=== PATIENT | female | born 1945 | race Caucasian/White ===

== ENCOUNTER → 2016-07-12 09:40 | Day surgery (SDC) | payer MEDICARE, OTHER ==
[2016-07-11 11:00] LABS: HEMATOCRIT 34.6 % (36.0-48.0); HEMOGLOBIN 11.6 g/dL (12-16); MCH 31.4 pg (26.0-34.0); MCHC 33.5 g/dL (31.0-37.0); MCV 93.8 fL (80.0-100.0); MEAN PLATELET VOLUME 8.9 fL (7.4-10.4); RBC 3.69 10x6/uL (4.00-5.40); RDW 13.8 % (11.5-14.5); WBC 7.8 10x3/uL (4.8-10.8)
[2016-07-11 11:06] LABS: ANION GAP 13.9 mmol/L (8-16); CALCIUM 9.7 mg/dL (8.5-10.1); CARBON DIOXIDE 27.5 mmol/L (21.0-32.0); CREATININE - SERUM 1.4 mg/dL (0.6-1.3); POTASSIUM - SERUM 3.4 mmol/L (3.5-5.1)
[~2016-07-12] VITALS: Ht 165.1 cm; Wt 72.1 kg
[~2016-07-12 09:40] MED LIST: ARAVA10 MG PO; BAYER CHEWABLE81 MG PO; CALTRATE 600 M600 M1 PO; CENTRUM COMPLE1 EACH PO; CLARITIN 10 MG10 MG PO; CRESTOR20 MG PO; CYCLOBENZAPRINE10 MG PO; CYMBALTA20 MG PO; LANTUS SOL100 UNIT/1 SC; LASIX20 MG PO; LISINOPRIL5 MG PO; LOPID600 MG PO; LOPRESSOR25 MG PO; NAPROSYN500 MG PO; NOVOLOG100 U/M1 SC; PERCOCET 10/3251 TA1 PO; PLAVIX75 MG PO; PRAVACHOL40 MG PO; PREDNISONE5 MG PO; TRIBENZOR 40-11 EACH PO; VICTOZA INJ; VICTOZA0.6 MG/0.1 SQ
[2016-07-12 10:02] VITALS: BP 124/56; Ht 165.1 cm; Wt 72.1 kg
--- NOTE | 2016-07-12 10:31 | NUR ---
1015 PATIENTS BLOOD SUGAR IS 343, CALLED DR. MCCAIN ABOUT BLOOD SUGAR AND NO NEW ORDERS NOTED. PATIENT STABLE NO PROBLEMS.
--- NOTE | 2016-07-12 15:00 | NUR ---
1445-ESCORTED VIA WHEELCHAIR TO PERSONAL CAR, LEFT WITH DRIVING.
--- NOTE | 2016-07-27 11:39 | OP ---
PATIENT NAME: JOB FOWLER MEDICAL RECORD: [id number] :47 LOCATION:DEX ADMISSION DATE: SURGEON: CLEMENCIA PETER MD DATE OF OPERATION: 07/12/2016 Orthopedic Surgery Operative Note PREOPERATIVE DIAGNOSIS: Failed internal fixation of a fifth metatarsal fracture. POSTOPERATIVE DIAGNOSIS: Failed internal fixation of a fifth metatarsal fracture. PROCEDURES: Removal of previously placed hardware with revision open reduction internal fixation of left fifth metatarsal fracture with allograft grafting. OPERATIVE SUMMARY IN DETAIL: After obtaining the appropriate preoperative orthopedic surgery consent as well as anesthetic consultation, evaluation and clearance, the patient was brought to the operating room and placed on the operating table in supine position. After adequate general laryngeal mask airway was administered, the patient was placed in a right lateral decubitus position. All pressure points were well padded. She was held firmly to the operating table using the vacuum pack suction system. The left lower extremity was prepped and draped in routine sterile fashion. The left leg was elevated and exsanguinated, tourniquet inflated to 250 mmHg. An incision was taken from base of the fifth metatarsal to approximately 3/[address] of the shaft. The broken intraarticular screw was identified and the distal aspect was taken out first with the screw removal device from the [employer] universal screw removal system. Having completed this, a guidewire was then placed retrograde through the screw. Its proximal limb was identified and then it was simply removed by screwing it out backwards. Having completed this, all fibrotic tissue of the nonunion was removed. The reduction was then held in place with interposed graft matrix and a birail plate was then placed on this, serial and sequential drill and fill in a compression style fashion resulted in excellent anatomic reduction across the nonunion, further graft was placed on the medial side as well. The wound was gently closed over the grafting material using 2-0 Vicryl followed by 4-0 Prolene in running fashion. Sterile dressings were applied and a postop shoe was applied. The patient was awakened, taken to recovery in stable condition. All final needle and sponge counts were correct. TRANSINT:[id number] Voice Confirmation ID: [id number] DOCUMENT ID: [id number] CLEMENCIA PETER MD at 1139 CC: [id number] DICTATION DATE: 07/26/162099 MERCANTILE REPORTER: 07/27/16 0340 [facility] 07/12/16 [place] [id number] [facility], [facility]901
== END | disposition home or self-care (01) ==
LOC: D.OPS 09:40 → D.PAN 09:45 → D.OPS 11:45 → D.PAN 12:00 → D.OPS 16:35
PROVIDERS: Anesthesiology
DX: S92.352G Displaced fracture of fifth metatarsal bone, left foot, subsequent encounter for fracture with delayed healing (principal); S92.355S Nondisplaced fracture of fifth metatarsal bone, left foot, sequela; I25.10 Atherosclerotic heart disease of native coronary artery without angina pectoris; I10 Essential (primary) hypertension; E11.9 Type 2 diabetes mellitus without complications; Z95.5 Presence of coronary angioplasty implant and graft; T84.9XXA Unspecified complication of internal orthopedic prosthetic device, implant and graft, initial encounter; Z01.812 Encounter for preprocedural laboratory examination

== ENCOUNTER 2017-11-22 07:35 | Outpatient (CLI) | payer MEDICARE, OTHER ==
[~2017-11-22] VITALS: Ht 165.1 cm; Wt 70.9 kg
--- NOTE | ~2017-11-22 | OP ---
PATIENT NAME: JOB FOWLER MEDICAL RECORD: [id number] :47 LOCATION:D.CAT ADMISSION DATE: SURGEON: JV TODD MD DATE OF OPERATION: 11/22/2017 DATE OF SERVICE: 11/22/2017 PROCEDURES: 1. Stent placement SFA, left. 2. INFORMATION SECURITY DIRECTOR SFA, left. 3. Aortofemoral runoff. 4. Abdominal aortography. INDICATION: Claudication and peripheral vascular disease, nonhealing ulcer of left lower extremity, limb threatening ischemia. PROCEDURE IN DETAIL: After informed consent was obtained and after detailed explanation risks, benefits as well as alternative therapies, the patient elected to proceed with angiogram and angioplasty. The right femoral area was prepped and draped in normal sterile fashion. Right femoral artery was cannulated via modified Seldinger technique with placement of a 6-Swedish qulprt-gks-dpbq sheath. All catheters exchanged through this sheath. FINDINGS: The abdominal aortography was performed. The catheter was pulled down for aortofemoral runoff. Abdominal aortography reveals no significant abdominal aortic disease. No dissection or annulus formation. No renal artery stenosis. RIGHT LEG: A. Iliac: The common internal and external iliacs have moderate irregularities, but no flow-limiting stenosis. B. Femoral system: The common and deep femoral are widely patent. Superficial femoral has moderate irregularities, but no discrete flow-limiting stenosis. C. Popliteal and infrapopliteal vessels are widely patent with good 3-vessel runoff to the foot. LEFT LEG: A. Iliac: The common internal and external iliacs have moderate irregularities, but no flow-limiting stenosis. B. Femoral system: The common and deep femoral are widely patent. Superficial femoral has a 90% stenosis followed by a 99% stenosis. C. Popliteal and infrapopliteal vessels: Popliteal is patent and infrapopliteal vessels are patent with good 3-vessel runoff to the foot. INFORMATION SECURITY DIRECTOR STENT OF THE LEFT SFA: We were able to traverse the total occlusion with a Quick-Cross Glidewire combination. The balloon used was a 4-0 coronary balloon followed by a 6-0 peripheral balloon. This yielded suboptimal result with severe intimal dissection. Stenting was undertaken with a 7 x 40 SMART stent times 2. Result was 0% residual stenosis. OVERALL IMPRESSION: Successful percutaneous transluminal angioplasty stent of the left superficial femoral artery going from 99% initial stenosis to 0% residual. TRANSINT:[id number] Voice Confirmation ID: [id number] DOCUMENT ID: [id number] OPERATIVE REPORT [id number] JOB FOWLER JEFFREY MD at 1843 CC: [id number] DICTATION DATE: 11/22/17 1000 MANAGER SUPPORT: 11/22/17 1028 DEP CLI 11/22/17 [place] [id number]
--- NOTE | ~2017-11-22 | HEMODYNAMI ---
PATIENT:JOB FOWLER MEDICAL RECORD: [id number] : 47 LOCATION:D.CAT ADMISSION DATE: 11/22/17 Generatedon:11/22/201710:00 Patient name: JOB FOWLER Patient #: [id number] SSN: D OB: 1945 Date of study: 11/22/2017 Page: Of Hemodynamic Procedure Report Patient Data Patient Demographics Procedure consent was obtained First Name: JOB Gender: Female Last Name: MALCOLM : 1945 [facility] Initial: P Age: 72 year(s) Patient #: [id number] Race: Unknown Additional ID: [id number] Contact details Address: [place] [address] State: [place] City: [place] Zip code: [address] Past Medical History Allergies Allergen Reaction Date Comments Reported Other allergy 12/15/2014 morphine Other allergy 11/22/2017 LISINOPRIL, MORPHINE Admission Admission Data Admission Date: 11/22/2017 Admission Time: 7:35 Height (in.): 5.5 BSA: 0.3 (m2) Height (cm.): 13.97 BMI: 3672.23 (kg/m2) Weight (lbs.): 158 Weight (kg.): 71.67 Procedure Procedure Types Cath Procedure Peripheral Cath Diagnostic Procedure Cath Peripheral Gnmms-Zpxkhhz-Qhh-Off Peripheral vascular Intervention Stent Stent-Fem/Popw/plasty Procedure Description Procedure Date Procedure Date: 11/22/2017 Procedure Start Time: 9:28 Procedure End Time: 9:59 Procedure Staff Name Function Maximo Ruelas MD Performing Physician Christine Pereyra RT Monitor Emilee Vaughan RT Scrub Rajendra Campos RT Tool Machine Setup Operator Cabrera Owen RN Tool Machine Setup Operator Procedure Data Cath Procedure Fluoroscopy Diagnostic fluoroscopy Total fluoroscopy Time: 8.6 time: 8.6 min min Diagnostic fluoroscopy Total fluoroscopy dose: 138 dose: 138 mGy mGy Contrast Material Contrast Material Type Amount (ml) Isovue 300 83 Entry Location Entry Primary Successful Side Size Upsize Upsize Entry Closure Succes sful Closure Location (Fr) 1 (Fr) 2 (Fr) Remarks Device Remarks Femoral Right 5 Fr 6 Fr Exoseal artery Long Estimated blood loss: 10 ml Diagnostic catheters Device Type Used For End Catheter Placement DIAGNOSTIC UF 5Fr Procedure catheter ([id number]) Procedure Complications No complications Procedure Medications Medication Administration Route Dosage Oxygen etCO2 Nasal cannula 2 l/min Heparin Flush Bag added to field 2 bags (1000units/500ml NS) 0.9% NaCl I.V. 100 ml/hr Fentanyl I.V. 50 mcg Versed I.V. 1 mg Fentanyl I.V. 50 mcg Versed I.V. 1 mg Heparin Bolus I.V. 5000 units Hemodynamics Rest BSA: 0.3 (m2) O2 Consumption: Estimated: 28.89 (ml/min) O2 Consumption indexed: Estimated:96.3 (ml/min/m) Heart Rate: 82 (bpm) Snapshots Pre Cath Intra NCS Post Cath Vital Signs Time Heart Resp SPO2 etCO2 NIBP (mmHg) Rhythm Pain Sedation Rate (ipm) (%) (mmHg) Status Level (bpm) 9:17:16 82 16 99 0 181/77(135) NSR 0 (11) 10(A) , No pain 9:22:09 81 16 100 40.6 169/84(137) NSR 0 (11) 10(A) , No pain 9:27:02 79 16 98 30.8 156/67(128) NSR 0 (11) 10(A) , No pain 9:32:27 81 17 98 20.3 138/63(98) NSR 0 (11) 9(A) , No pain 9:37:10 81 17 98 12.7 139/66(98) NSR 0 (11) 9(A) , No pain 9:41:53 83 16 98 21.8 151/69(102) NSR 0 (11) 9(A) , No pain 9:46:37 84 17 100 45.8 149/74(118) NSR 0 (11) 9(A) , No pain 9:51:20 85 16 100 24.8 158/77(123) NSR 0 (11) 9(A) , No pain 9:55:36 83 16 99 40.6 162/75(128) NSR 0 (11) 9(A) , No pain Medications Time Medication Route Dose Verified Delivered Reason Notes Effectiveness by by 9:22:05 Oxygen etCO2 2 Maximo Rees Per physician Nasal l/min Suraj Owen RN cannula 9:22:14 Heparin Flush added 2 Maximo Rees used for Bag to bags Suraj Owen RN procedure (1000units/500ml field NS) 9:22:24 0.9% NaCl I.V. 100 Maximo Rees Per physician ml/hr Suraj Owen RN 9:23:53 Fentanyl I.V. 50 Maximo Rees for sedation mcg Suraj Owen RN 9:23:59 Versed I.V. 1 mg Maximo Rees for sedation Suraj Owen RN 9:27:32 Fentanyl I.V. 50 Maximo Rees for sedation mcg Suraj Owen RN 9:27:36 Versed I.V. 1 mg Maximo Hdezy for sedation Suraj Owen RN 9:33:16 Heparin Bolus I.V. 5000 Maximo Hdezy for units Suraj Oewn RN anticoagulation Procedure Log Time Note 8:19:08 Time tracking: Regular hours (M-F 7:00 - 5:00) 8:19:12 Plan of Care:Hemodynamics will remain stable., Cardiac rhythm will remain stable., Comfort level will be maintained., Respiratory function will remain adequate., Patient/ family verbilizes understanding of procedure., Procedure tolerated without complication., Recovers from procedure without complications.. 8:51:26 Emilee Counts RT(R) sent for patient. Start room use. 9:03:38 Patient allergic to Other allergyLISINOPRIL, MORPHINE 9:03:52 Patient Weight : 158 lbs 9:04:01 Patient Height : 5.5 inches 9:09:50 Patient received from Pre/Post Procedure Room to CCL 1 Alert and oriented. Tansferred to table in Supine position. 9:09:52 Warm blankets applied, and gonzalo hugger turned on for patient comfort. 9:09:55 Signed procedure consent form obtained from patient. 9:09:56 ECG and BP/O2 sat monitors applied to patient. 9:16:16 Vital chart was started 9:21:40 Baseline sample Acquired. 9:21:44 Rhythm: sinus rhythm 9:21:45 Full Disclosure recording started 9:21:52 H&P Date Dictated: 11/21/2017 Within 30 days and on chart., H&P Addendum completed by physician on day of procedure. (MUST COMPLETE FOR ALL OUTPATIENTS). 9:21:53 Pre-procedure instructions explained to patient. 9:21:53 Pre-op teaching completed and patient verbalized understanding. 9:21:55 Family in waiting room. 9:21:57 Patient NPO since Midnight. 9:21:59 Is the patient allergic to Iodine/contrast media? No. 9:22:05 Oxygen 2 l/min etCO2 Nasal cannula was administered by Cabrera Owen RN; Per physician; 9:22:08 Is patient on blood thinner?Yes 9:22:10 ACC The patient was administered the following blood thiners within the last 24 hours: ACCPlavix 9:22:13 Patient diabetic? Yes. 9:22:14 Heparin Flush Bag (1000units/500ml NS) 2 bags added to field was administered by Cabrera Owen RN; used for procedure; 9:22:24 0.9% NaCl 100 ml/hr I.V. was administered by Cabrera Owen RN; Per physician; 9:22:28 If diabetic: On Metformin? No 9:22:35 Patient not . Patient is over age 55. 9:23:00 Previous problem with sedation/anesthesia? No ? 9:23:03 Snore? Yes 9:23:04 Sleep apnea? No 9:23:06 Deviated septum? No 9:23:07 Opens mouth fully? Yes 9:23:08 Sticks out tongue? Yes 9:23:09 Airway obstruction? No ? 9:23:13 Dentures? Yes IN TIGHT 9:23:16 Pre procedure: left dorsailis pedis pulse 1+ Palpable, but thready & weak; easily obliterated 9:23:19 Patient pain scale 0/10 ?. 9:23:24 IV patent on arrival in left forearm with 0.9% NaCl at [facility]. 9:23:29 Bilateral groins area was prepped with chlora-prep and draped in sterile fashion 9:23:30 Alarms reviewed by R. N. 9:23:30 Sharps counted by scrub and verified by R.N. 9:23:32 --------ALL STOP TIME OUT------ 9:23:32 Final Timeout: patient, procedure, and site verified with staff and physician. All members of the team are in agreement. 9:23:34 Bilateral groins site verified by team. 9::39 Physical assessment completed. ASA score P 2 - A patient with mild systemic disease as per Maximo Ruelas MD. 9:23:42 Sedation plan: IV Moderate Sedation Medication:Versed, Fentanyl 9:23:52 Use device set CATH PACK 9:23:53 Fentanyl 50 mcg I.V. was administered by Cabrera Owen RN; for sedation; 9:23:53 ACIST Syringe (78549) opened to sterile field. 9:23:53 ACIST Hand Control (67846) opened to sterile field. 9:23:53 ACIST Manifold (07928) opened to sterile field. 9:23:54 Medline Cath Pack ([id number]) opened to sterile field. 9:23:54 Bag Decanter (2002S) opened to sterile field. 9:23:55 DIAGNOSTIC WIRE .035 260cm J wire (256370) opened to sterile field. 9:23:59 Versed 1 mg I.V. was administered by Cabrera Owen RN; for sedation; 9:24:01 SHEATH 5FR [place] (HFL123) opened to sterile field. 9:27:32 Fentanyl 50 mcg I.V. was administered by Cabrera Owen RN; for sedation; 9:27:36 Versed 1 mg I.V. was administered by Cabrera Owen RN; for sedation; 9:27:48 Zero performed for pressure channel P1 9:27:54 Procedure started. 9:28:02 Zero performed for pressure channel P1 9:28:38 Local anesthetic to right femoral artery with Lidocaine 2% by Maximo Ruelas MD.INITIAL ACCESS ONLY 9:28:51 A 5 Fr sheath was inserted into the Right Femoral artery 9:29:02 A DIAGNOSTIC UF 5Fr catheter ([id number]) was advanced over the wire and used for Procedure. 9:29:45 Abdominal angiogram w/ runoff was performed. 9:30:11 Left leg runoff performed. 9:30:24 Right leg runoff performed. 9:30:42 GLIDE WIRE ANGLE 260cm (GX5374) opened to sterile field. 9:30:54 INFLATOR [place] BasixCompak (UR1038) opened to sterile field. 9:31:40 SHEATH 6FR [place] (RSR01) opened to sterile field. 9:31:54 GLIDE WIRE ADVANCED AROUND HORN 9:32:00 Sheath upsized to a 6 Fr Long. 9:33:16 Heparin Bolus 5000 units I.V. was administered by Cabrera Owen RN; for anticoagulation; 9:33:16 LONG SHEATH ADVANCED AROUND THE HORN 9:33:43 SHEATH 6FR [place] (DYC874) opened to sterile field. 9:34:08 TORQUE DEVICE PLASTIC .038 ( TD01) opened to sterile field. 9:35:10 CHOICE PT Floppy Straight 300cm guide wire ([id number]) opened to sterile field. 9:37:53 GLIDE CATHETER 5FR STRAIGHT 100cm (CG506) opened to sterile field. 9:38:02 CHOICE PT Floppy Straight 300cm guide wire ([id number]) opened to sterile field. 9:38:32 STRAIGHT GLIDE CATH ADVANCED WITH CHOICE ES 300 9:38:59 STRAIGHT GLIDE REMOVED 9:39:56 GLIDE CATHETER 5FR ANGLED 100cm (CG508) opened to sterile field. 9:40:22 ANGLED GLIDE CATH ADVNACED WITH WIRE 9:41:18 Wire advanced across lesion. 9:42:08 ANGLED GLIDE REMOVED OVER WIRE 9:42:11 CXI SUPPORT .035 135 CM STR catheter (Q88443) opened to sterile field. 9:42:40 NEW CHOICE 300 EXCHANGED THROUGH CXI 9:42:44 Wire advanced across lesion. 9:44:02 Inflate balloon Inflation number: 1 A MAVERICK 4.0 X 20 balloon ([id number]) was prepped and advanced across the Distal Superficial Femoral, Left, then inflated to 17 LAURA for 0:02 (min:sec). 9:44:14 Inflation number: 2 The MAVERICK 4.0 X 20 balloon ([id number]) was reinflated across the Distal Superficial Femoral, Left, to 17 LAURA for 0:10 (min:sec). 9:44:25 Inflation number: 3 The MAVERICK 4.0 X 20 balloon ([id number]) was reinflated across the Distal Superficial Femoral, Left, to 17 LAURA for 0:21 (min:sec). 9:44:45 Balloon removed over the wire. 9:45:35 Inflate balloon Inflation number: 4 A POWERFLEX PRO 6.0 X 20 X 135 balloon ([id number]) was prepped and advanced across the Distal Superficial Femoral, Left, then inflated to 9 LAURA for 0:10 (min:sec). 9:45:50 Inflation number: 5 The POWERFLEX PRO 6.0 X 20 X 135 balloon ([id number]) was reinflated across the Distal Superficial Femoral, Left, to 11 LAURA for 0:10 (min:sec). 9:46:15 Inflation number: 6 The POWERFLEX PRO 6.0 X 20 X 135 balloon ([id number]) was reinflated across the Distal Superficial Femoral, Left, to 9 LAURA for 0:10 (min:sec). 9:46:33 Balloon removed over the wire. 9:48:39 SMART 7 X 40 X 120 stent ([id number]) was deployed across Distal Superficial Femoral, Left . 9:49:59 Stent catheter was removed intact over wire. 9:50:12 SMART 7 X 40 X 120 stent ([id number]) was deployed across Mid Superficial Femoral, Left1 . 9:51:04 Stent catheter was removed intact over wire. 9:51:07 Inflation number: 7 The POWERFLEX PRO 6.0 X 20 X 135 balloon ([id number]) was reinflated across the Distal Superficial Femoral, Left, to 13 LAURA for 0:10 (min:sec). 9:51:12 Inflation number: 8 The POWERFLEX PRO 6.0 X 20 X 135 balloon ([id number]) was reinflated across the Distal Superficial Femoral, Left, to 13 LAURA for 0:00 (min:sec). 9:51:23 Inflation number: 9 The POWERFLEX PRO 6.0 X 20 X 135 balloon ([id number]) was reinflated across the Distal Superficial Femoral, Left, to 13 LAURA for 0:00 (min:sec). 9:51:34 Inflation number: 10 The POWERFLEX PRO 6.0 X 20 X 135 balloon ([id number]) was reinflated across the Distal Superficial Femoral, Left, to 13 LAURA for 0:10 (min:sec). 9:51:38 Balloon removed over the wire. 9:52:58 LONG SHEATH EXCHANGED FOR SHORT SHEATH 9:53:07 EXOSEAL 6Fr (EX600) opened to sterile field. 9:53:21 Sheath removed intact; hemostasis achieved with Exoseal to the Right Femoral artery. 9:53:41 Procedure ended.(Physican Out) 9:55:33 Fluoroscopy time 08.60 minutes. 9:55:36 Fluoroscopy dose: 138 mGy 9:55:36 Flurop Dose total: 138 9:55:40 Contrast amount:Isovue 300 83ml. 9:55:41 Sharps counted by scrub and verified by R.N. 9:55:45 Post-op/insertion site Right Femoral artery dressed using a 4 x 4 and Tegaderm. 9:55:52 Post-procedure physical assessment completed. ASA score P 2 - A patient with mild systemic disease as per Maximo Ruelas MD. 9:55:56 Post procedure rhythm: sinus rhythm 9:55:59 Estimated blood loss: 10 ml 9:56:06 Post procedure instruction explained to patient.Patient verbalizes understanding. 9:56:07 Patient needs reinforcement of post procedure teaching. 9:57:08 Procedure type changed to Cath procedure, Peripheral Cath Diagnostic Procedure, Cath Peripheral, Zsbum-Uwebvqj-Xui-Off, Peripheral vascular Intervention, Stent, Stent-Fem/Popw/plasty 9:58:59 Procedure and supply charges have been captured, reviewed, submitted and are correct. 9:59:04 Procedure Complication : No complications 9:59:06 Vital chart was stopped 9:59:07 See physician's report for complete and final results. 9:59:09 Report given to Pre/Post Procedure Room. 9:59:12 Patient transfered to Pre/Post Procedure Room with Bed. 9:59:14 Procedure ended. 9:59:14 Full Disclosure recording stopped 9:59:18 End room use (Document Last) Intervention Summary Intervention Notes Time ActionType Lesion and Equipment Action# Pressure Duration Attributes Used 9:44:02 Inflate Distal MAVERICK 4.0 1 17 00:02 balloon Superficial X 20 balloon Femoral, ([id number]) Left 9:44:14 Reinflate Distal MAVERICK 4.0 2 17 00:10 balloon Superficial X 20 balloon Femoral, ([id number]) Left 9:44:25 Reinflate Distal MAVERICK 4.0 3 17 00:21 balloon Superficial X 20 balloon Femoral, ([id number]) Left 9:45:35 Inflate Distal POWERFLEX 4 9 00:10 balloon Superficial PRO 6.0 X 20 Femoral, X 135 Left balloon ([id number]) 9:45:50 Reinflate Distal POWERFLEX 5 11 00:10 balloon Superficial PRO 6.0 X 20 Femoral, X 135 Left balloon ([id number]) 9:46:15 Reinflate Distal POWERFLEX 6 9 00:10 balloon Superficial PRO 6.0 X 20 Femoral, X 135 Left balloon ([id number]) 9:48:39 Deploy self Distal SMART 7 X 40 1 expanding Superficial X 120 stent stent Femoral, ([id number]) Left 9:50:12 Deploy self Mid SMART 7 X 40 1 expanding Superficial X 120 stent stent Femoral, ([id number]) Left1 9:51:07 Reinflate Distal POWERFLEX 7 13 00:10 balloon Superficial PRO 6.0 X 20 Femoral, X 135 Left balloon ([id number]) 9:51:12 Reinflate Distal POWERFLEX 8 13 00:00 balloon Superficial PRO 6.0 X 20 Femoral, X 135 Left balloon ([id number]) 9:51:23 Reinflate Distal POWERFLEX 9 13 00:00 balloon Superficial PRO 6.0 X 20 Femoral, X 135 Left balloon ([id number]) 9:51:34 Reinflate Distal POWERFLEX 10 13 00:10 balloon Superficial PRO 6.0 X 20 Femoral, X 135 Left balloon ([id number]) Device Usage Item Name Manufacture Quantity Catalog Number Hospital Part Current Min imal Lot# / Charge Number Stock Stock Serial# Code ACIST Acist 1 08957 751156 445318 270270 20 Syringe Medical (72316) Systems Inc ACIST Hand Acist 1 99143 245943 912330 495818 5 Control Medical (57370) Systems Inc ACIST Acist 1 02538 986292 272841 314951 5 Manifold Medical (17590) Systems Inc Medline Cath Cardinal 1 [id number] 357668 52620 351459 5 Pack Health ([id number]) Bag Decanter Microtek 1 580321 54489 743577 5 () Medical Inc. DIAGNOSTIC St [place] 1 480191 281033 592897 969216 30 WIRE .035 260cm J wire (067612) SHEATH 5FR Terumo 1 PTC485 533848 571660 358299 40 [place] (JIK091) DIAGNOSTIC Cardinal 1 [id number] 442230 102054 320589 10 UF 5Fr Health catheter (667065Y4) GLIDE WIRE Terumo 1 EC1482 161503 560506 572389 5 ANGLE 260cm (JK3234) INFLATOR [facility] 1 ZK0281 177973 992978 062463 15 [facility] Medical BasixCompak (NO0528) SHEATH 6FR Terumo 1 RSR01 615555 26104 602629 5 Destination (RSR01) SHEATH 6FR Terumo 1 KSS553 721957 065699 509752 40 [place] (VIT473) TORQUE [place] 1 TD01 778257 793423 200639 5 DEVICE Scientific PLASTIC .038 ( TD01) CHOICE PT [place] 2 [id number] 969734 120647 225616 5 Floppy Scientific Straight 300cm guide wire ([id number]) GLIDE Terumo 1 CG506 369324 90103 205965 4 CATHETER 5FR STRAIGHT 100cm (CG506) GLIDE Terumo 1 CG508 859577 09640 929552 4 CATHETER 5FR ANGLED 100cm (CG508) CXI SUPPORT [place] 1 Y14019 040798 991144 713840 5 .035 135 CM STR catheter (O98131) MAVERICK 4.0 [place] 1 [id number] 202062 022292 993174 1 [id number] X 20 balloon Scientific ([id number]) POWERFLEX Cardinal 1 [id number] 630902 316513 297787 5 PRO 6.0 X 20 Health X 135 balloon ([id number]) SMART 7 X 40 Cardinal 2 [id number] 404386 695098 0 X 120 stent Health ([id number]) EXOSEAL 6Fr Cardinal 1 EX600 267271 145026 242481 10 (EX600) Health Signature Audit [place] Stage Time Signature Unsigned Intra-Procedure 11/22/2017 Christine Pereyra 10:00:41 AM RT(R) Signatures Monitor : Christine Pereyra Signature : RT Date : Time : [facility] [address] [place] [address]
[2017-11-22] MEDS ORDERED: PLAVIX75 MG PO (08:04)
[2017-11-22] MEDS ORDERED: ULTRAM50 MG PO (08:05)
[2017-11-22] MEDS ORDERED: ZETIA10 MG PO (08:05)
[2017-11-22 08:20] VITALS: BP 154/59; Ht 165.1 cm; Wt 70.9 kg
[2017-11-22 08:38] LABS: BASOPHILS 0.6 % (0-2); EOSINOPHILS 6.9 % (0-7); HEMATOCRIT 33.5 % (36.0-48.0); HEMOGLOBIN 11.1 g/dL (12-16); IMMATURE GRANULOCYTES 0.2 % (0-5); LYMPHOCYTES 22.2 % (15-50); MCH 30.2 pg (26.0-34.0); MCHC 33.1 g/dL (31.0-37.0); MCV 91.3 fL (80.0-100.0); MEAN PLATELET VOLUME 8.9 fL (7.4-10.4); MONOCYTES 7.6 % (2-11); NEUTROPHILS 62.5 % (40-80); PLATELET COUNT 251 10x3/uL (130-400); RBC 3.67 10x6/uL (4.00-5.40); RDW 13.2 % (11.5-14.5); WBC 8.8 10x3/uL (4.8-10.8)
[2017-11-22 08:54] LABS: ANION GAP 10.7 mmol/L (8-16); CALCIUM 8.8 mg/dL (8.5-10.1); CARBON DIOXIDE 28.9 mmol/L (21.0-32.0); CREATININE - SERUM 1.4 mg/dL (0.6-1.3); POTASSIUM - SERUM 3.6 mmol/L (3.5-5.1)
== END 2017-11-22 13:50 | disposition home or self-care (01) ==
LOC: D.CATH 07:35
PROVIDERS: Internal Medicine Interventional Cardiology
DX: I70.248 Atherosclerosis of native arteries of left leg with ulceration of other part of lower leg (principal); L97.829 Non-pressure chronic ulcer of other part of left lower leg with unspecified severity; Z01.812 Encounter for preprocedural laboratory examination

== ENCOUNTER → 2018-05-01 09:14 | Outpatient (CLI) | payer MEDICARE, OTHER ==
[2017-11-22 08:20] VITALS: BMI 26.0
[~2018-05-01 09:14] MED LIST changes: +ULTRAM50 MG PO; +ZETIA10 MG PO
--- NOTE | 2018-05-06 10:45 | ST ---
PATIENT:JOB FOWLER MEDICAL RECORD: [id number] SEX: F LOCATION:[facility] ORDER #: ADMISSION DATE: 05/01/18 AGE OF PATIENT: 72 REFERRING PHYSICIAN: INTERPRETING PHYSICIAN: JV TODD MD DATE OF SERVICE: 05/01/2018 Nuclear Stress Test INDICATION: Angina and coronary artery disease and hypertension. The patient was exercised on standard Lexiscan protocol with 32 mCi of sestamibi injected at peak stress, 10 mCi used previously for rest images. FINDINGS: Gated SPECT reveals preserved ejection fraction at 70% with good wall motion and thickening and brightening throughout all segments. SPECT imaging Cardiolite was used as myocardial fusion agent. There is homogeneous uptake throughout all segments at rest and stress with no evidence of inducible ischemia or previous infarction. OVERALL IMPRESSION: 1. This is a normal nuclear stress test with no evidence of inducible ischemia or previous infarction. 2. Gated SPECT reveals a preserved ejection fraction at 70%. In this patient with ongoing symptomatology, the current scan does not suggest the presence of hemodynamically significant coronary artery disease. Evaluate noncardiac etiology of chest pain. TRANSINT:[id number] Voice Confirmation ID: [id number] DOCUMENT ID: [id number] JV TODD MD at 1045 CC: [id number] DICTATION DATE: 05/02/18 1024 [facility]: 05/03/18 0028 DEP CLI 05/01/[address] [address]
== END | disposition home or self-care (01) ==
LOC: D.HCCARDIO 04-22 10:00
DX: I25.10 Atherosclerotic heart disease of native coronary artery without angina pectoris (principal)

== ENCOUNTER → 2018-11-21 09:47 | Outpatient (CLI) | payer MEDICARE, OTHER ==
[2017-11-22 08:20] VITALS: BMI 26.0
--- NOTE | 2018-12-03 14:31 | ST ---
PATIENT:JOB FOWLER MEDICAL RECORD: [id number] SEX: F LOCATION:[facility] ORDER #: ADMISSION DATE: 11/21/18 AGE OF PATIENT: 73 REFERRING PHYSICIAN: INTERPRETING PHYSICIAN: JV TODD MD DATE OF SERVICE: 11/21/2018 PROCEDURE: Nuclear stress test. INDICATION: Angina, coronary artery disease, shortness of breath, hypertension, hyperlipidemia. She was exercised on standard Lexiscan protocol with 33 mCi of sestamibi injected at peak stress, 11 mCi used previously for rest images. FINDINGS: Gated SPECT reveals preserved ejection fraction at 74% with good wall motion and thickening and brightening throughout all segments. SPECT imaging Cardiolite was used as myocardial fusion agent. There is homogeneous uptake throughout all segments at rest and stress with no evidence of inducible ischemia or previous infarction. OVERALL IMPRESSION: 1. This is a normal nuclear stress test with no evidence of inducible ischemia or previous infarction. 2. Gated SPECT reveals a preserved ejection fraction at 74%. In this patient with ongoing symptomatology, the current scan does not suggest the presence of hemodynamically significant coronary artery disease. Evaluate noncardiac etiology of chest pain. TRANSINT:[id number] Voice Confirmation ID: [id number] DOCUMENT ID: [id number] JV TODD MD at 1431 CC: GOPI CARCAMO MD [id number] DICTATION DATE: 11/21/18 1536 FARM EQUIPMENT SERVICE TECHNICIAN: 11/22/18 0018 DEP CLI 11/21/18 [place] [id number] [place] [id number]
== END | disposition home or self-care (01) ==
LOC: D.HCCARDIO 09:47
PROVIDERS: ATTEND Internal Medicine Interventional Cardiology
DX: I25.10 Atherosclerotic heart disease of native coronary artery without angina pectoris (principal)

== ENCOUNTER → 2019-04-09 09:08 | Outpatient (CLI) | payer MEDICARE, OTHER ==
[2017-11-22 08:20] VITALS: BMI 26.0
== END | disposition home or self-care (01) ==
LOC: D.CT 09:08
PROVIDERS: ATTEND Family Medicine
DX: K86.1 Other chronic pancreatitis (principal)

== ENCOUNTER → 2019-05-14 13:50 | Outpatient (CLI) | payer MEDICARE, OTHER ==
[2017-11-22 08:20] VITALS: BMI 26.0
== END | disposition home or self-care (01) ==
LOC: D.LAB 13:50
PROVIDERS: ATTEND Internal Medicine Gastroenterology
DX: R19.7 Diarrhea, unspecified (principal); R15.9 Full incontinence of feces

== ENCOUNTER 2019-05-29 05:41 | Outpatient (CLI) | payer MEDICARE, OTHER ==
[~2019-05-29] VITALS: Ht 165.1 cm; Wt 72.3 kg
--- NOTE | ~2019-05-29 | HEMODYNAMI ---
PATIENT:JOB FOWLER MEDICAL RECORD: [id number] : 47 LOCATION:[facility] ADMISSION DATE: 05/29/19 Generatedon:05/29/201910:15 Patient name: JOB FOWLER Patient #: [id number] SSN: D OB: 1945 Date of study: 05/29/2019 Page: Of Hemodynamic Procedure Report Patient Data Patient Demographics Procedure consent was obtained First Name: JOB Gender: Female Last Name: MALCOLM : 1945 [facility] Initial: P Age: 73 year(s) Patient #: [id number] Race: Unknown Additional ID: [id number] Contact details Address: [place] [address] State: [place] City: [place] Zip code: [address] Past Medical History Allergies Allergen Reaction Date Comments Reported Other allergy 12/15/2014 morphine Other allergy 11/22/2017 LISINOPRIL, MORPHINE Morphine 05/29/2019 Other allergy 05/29/2019 lisinopril, Amoxicillin 05/29/2019 Admission Admission Data Admission Date: 05/29/2019 Admission Time: 5:41 Procedure Procedure Types Cath Procedure Peripheral Cath Diagnostic Procedure Supervisor Fishing Peripheral Procedures Abd/Extremity Renal Renal Angiogram Uni w/ Branch Procedure Description Procedure Date Procedure Date: 05/29/2019 Procedure Start Time: 9:24 Procedure Staff Name Function Tra Keith RT Scrub Arun Acosta MD Performing Physician Milvia Timmons RN Nurse Kimberly Stewart RT Maintenance Foreman Procedure Data Cath Procedure Fluoroscopy Diagnostic fluoroscopy Total fluoroscopy Time: 6.3 time: 6.3 min min Diagnostic fluoroscopy Total fluoroscopy dose: 518 dose: 518 mGy mGy Contrast Material Contrast Material Type Amount (ml) Isovue 300 40 Entry Location Entry Primary Successful Side Size Upsize Upsize Entry Closure Succes sful Closure Location (Fr) 1 (Fr) 2 (Fr) Remarks Device Remarks Femoral Exoseal artery Diagnostic catheters Device Type Used For End Catheter Placement Angiodynamics SOS OMNI 2 NON B 5FR 65CM catheter ([id number]) Procedure Medications Medication Administration Route Dosage Heparin Flush Bag added to field 2 bags (1000units/500ml NS) Lidocaine 1% added to field 20 Benadryl I.V. 25 mg Decadron I.V. 8 mg Zofran I.V. 8 mg Benadryl I.V. 25 mg Versed I.V. 1 mg Fentanyl I.V. 50 mcg Versed I.V. 1 mg Fentanyl I.V. 50 mcg Hemodynamics Rest Heart Rate: 0 (bpm) Snapshots Pre Cath Intra NCS Post Cath Vital Signs Time Heart Resp SPO2 etCO2 NIBP (mmHg) Rhythm Pain Sedation Rate (ipm) (%) (mmHg) Status Level (bpm) 9:08:09 76 13 0 141/68(108) NSR 0 (11) 10(A) , No pain 9:12:35 79 13 0 137/67(105) NSR 0 (11) 10(A) , No pain 9:17:34 76 14 97 0 Measuring NSR 0 (11) 10(A) , No pain 9:18:03 76 12 98 0 133/86(130) NSR 0 (11) 10(A) , No pain 9:22:23 76 10 100 21.3 143/67(111) NSR 0 (11) 10(A) , No pain 9:26:45 73 10 84 37.4 139/76(105) NSR 0 (11) 10(A) , No pain 9:31:44 75 4 98 41.2 Measuring NSR 0 (11) 8(A) , No pain 9:31:54 75 4 98 23.6 119/57(96) NSR 0 (11) 8(A) , No pain 9:36:09 76 8 99 42.7 121/55(94) NSR 0 (11) 8(A) , No pain 9:40:28 77 14 98 43.5 133/55(92) NSR 0 (11) 8(A) , No pain 9:44:49 77 12 100 41.2 127/57(87) NSR 0 (11) 8(A) , No pain 9:49:09 77 13 99 42.7 123/59(93) NSR 0 (11) 8(A) , No pain 9:53:27 77 12 99 44.2 121/56(88) NSR 0 (11) 8(A) , No pain 9:57:45 77 11 98 42.7 134/60(100) NSR 0 (11) 8(A) , No pain 10:02:07 77 12 100 42.7 125/64(97) NSR 0 (11) 8(A) , No pain 10:06:27 75 11 99 17.5 124/54(86) NSR 0 (11) 8(A) , No pain 10:10:45 78 10 97 41.9 128/63(102) NSR 0 (11) 8(A) , No pain Medications Time Medication Route Dose Verified Delivered Reason Notes Effec tiveness by by 9:07:17 Heparin Flush added 2 Arun Dias used for Bag to bags Karla Acosta procedure (1000units/500ml field MD GAMBLE NS) 9:07:29 Lidocaine 1% added 20ml Arun Dias for local to vial Karla Acosta anesthetic field MD GAMBLE 9:07:43 Benadryl I.V. 25 mg Arun Steel Per Karla Timmons RN physician 9:08:05 Decadron I.V. 8mg Arun Steel Per Karla Timmons RN physician 9:08:20 Zofran I.V. 8 mg Arun Steel Per Karla Timmons RN physician 9:27:17 Benadryl I.V. 25 mg Arun Steel Per Karla Timmons RN physician 9:27:28 Versed I.V. 1 mg Arun Steel for Karla Timmons RN sedation 9:27:39 Fentanyl I.V. 50 Arun Steel for [facility] Karla Timmons RN sedation 9:43:58 Versed I.V. 1 mg Arun Steel for Karla Timmons RN sedation 9:44:05 Fentanyl I.V. 50 Arun Steel for [facility] Karla Timmons RN sedation Procedure Log Time Note 8:59:24 Time tracking: Regular hours (M-F 7:00 - 5:00) 8:59:43 Plan of Care:Hemodynamics will remain stable., Cardiac rhythm will remain stable., Comfort level will be maintained., Respiratory function will remain adequate., Patient/ family verbilizes understanding of procedure., Procedure tolerated without complication., Recovers from procedure without complications.. 8:59:53 Patient received from Outpatients to IR Alert and oriented. Tansferred to table in Supine position. 9:00:04 Signed procedure consent form obtained from patient. 9:02:14 H&P Date Dictated: 05/29/2019 Within 30 days and on chart., H&P Addendum completed by physician on day of procedure. (MUST COMPLETE FOR ALL OUTPATIENTS). 9:02:24 Pre-procedure instructions explained to patient. 9:02:25 Pre-op teaching completed and patient verbalized understanding. 9:03:06 Family in waiting room. 9:03:08 Patient NPO since Midnight. 9:03:31 Patient allergic to Morphine 9:03:54 Patient allergic to Other allergylisinopril, 9:04:02 Is the patient allergic to Iodine/contrast media? No. 9:04:05 Is patient on blood thinner?Yes, last dose 05/24/2019 9:04:36 Patient diabetic? Yes. 9:04:39 If diabetic: On Metformin? No 9:04:41 - 9:06:55 Vital chart was started 9:07:17 Heparin Flush Bag (1000units/500ml NS) 2 bags added to field was administered by Arun Acosta MD; used for procedure; Verbal order read back and verified. 9:07:29 Lidocaine 1% 20ml vial added to field was administered by Arun hutson MD; for local anesthetic; Verbal order read back and verified. 9:07:37 ECG and BP/O2 sat monitors applied to patient. 9:07:38 Baseline sample Acquired. 9:07:40 - 9:07:40 Full Disclosure recording started 9:07:43 Miltonadryl 25 mg I.V. was administered by Milvia Timmons RN; Per physician ; Verbal order read back and verified. 9:08:05 Decadron 8mg I.V. was administered by Milvia Timmons RN; Per physician; Verbal order read back and verified. 9:08:15 Baseline sample Acquired. 9:08:20 Zofran 8 mg I.V. was administered by Milvia Timmons RN; Per physician; Verbal order read back and verified. 9:08:22 ----Pre-sedation anethsthesia assessment.---- 9:08:26 Previous problem with sedation/anesthesia? No ? 9:08:30 Snore? Yes 9:08:33 Sleep apnea? Yes 9:08:38 Deviated septum? No 9:08:41 Opens mouth fully? Yes 9:08:45 Sticks out tongue? Yes 9:08:54 Airway obstruction? Yes heart disease 9:09:00 Dentures? No ? 9:09:12 Pre procedure: right dorsailis pedis pulse Doppler 9:09:21 Right groin area was prepped with chlora-prep and draped in sterile fashion 9:09:23 - 9:09:28 Use device set IR Diagnostic 9:09:29 Tegaderm 4 x 4 (1626W) opened to sterile field. 9:09:30 Sterile Angiographic Pack opened to sterile field. 9:09:31 Bag Decanter () opened to sterile field. 9:09:32 ACIST Manifold (80755) opened to sterile field. 9:09:33 ACIST Hand Control (21725) opened to sterile field. 9:09:34 ACIST Syringe (72553) opened to sterile field. 9:09:51 TUBING Contrast Injection High Pressure (UEL197O) opened to sterile field. 9:09:52 SHEATH 5FR Brogue (HBE924) opened to sterile field. 9:10:01 Micropuncture VSI 4FR kit opened to sterile field. 9:10:12 BENTSON 145cm wire (L38520) opened to sterile field. 9:10:36 Fire Safety Assessment: A--An alcohol-based skin anteseptic being used preoperatively., C--Open oxygen or nitrous oxide is being used. 9:10:53 3b) 30-44 Moderately reduced kidney function. 9:11:19 Maximum allowable contrast dose (3.7 X eGFR X 0.75)94 ml. 9:22:11 Physician arrived 9::12 Final Timeout: patient, procedure, and site verified with staff and physician. All members of the team are in agreement. 9::12 --------ALL STOP TIME OUT------ 9:24:46 Procedure started. 9:24:54 Local anesthetic to right femoral artery with Lidocaine 1% by Arun Acosta MD.INITIAL ACCESS ONLY 9:25:18 Arterial access obtained using ultrasound guidance. 9:25:51 - 9:26:10 Patient allergic to Amoxicillin 9:27:17 Benadryl 25 mg I.V. was administered by Milvia Timmons RN; Per physician ; Verbal order read back and verified. 9:27:23 A AngiodynamZipzoom SOS OMNI 2 NON B 5FR 65CM catheter ([id number]) was advanced over the wire and used for . 9:27:28 Versed 1 mg I.V. was administered by Milvia Timmons RN; for sedation; Verbal order read back and verified. 9:27:39 Fentanyl 50 mcg I.V. was administered by Milvia Timmons RN; for sedation ; Verbal order read back and verified. 9:39:01 TRANSEND STEERABLE wire ([id number]) opened to sterile field. 9:39:13 RENEGADE HI-LOU microcatheter ([id number]) opened to sterile field. 9:40:18 COPILOT Valve Control (3417054) opened to sterile field. 9:43:58 Versed 1 mg I.V. was administered by Milvia Timmons RN; for sedation; Verbal order read back and verified. 9:44:05 Fentanyl 50 mcg I.V. was administered by Milvia Timmons RN; for sedation ; Verbal order read back and verified. 9:44:38 GLIDE WIRE GT DOUBLE ANGLE .018 ([id number]) opened to sterile field. 9:53:02 STOPCOCK 3-Way Large Bore (T91492) opened to sterile field. 9:58:35 PARTICLES 250-355 Microns ([id number]) opened to sterile field. 10:02:34 COIL Micronester 6MM (Z59029) opened to sterile field. 10:05:14 EXOSEAL 5Fr (EX500) opened to sterile field. 10:05:16 STOPCOCK 3-Way Large Bore (Y72163) opened to sterile field. 10:05:46 Sheath removed intact; hemostasis achieved with Exoseal to the Femoral artery. 10:05:46 A sheath was inserted into the Femoral artery 10:07:14 Procedure ended.(Physican Out) 10:08:16 Fluoroscopy time 06.30 minutes. 10:08:22 Fluoroscopy dose: 518 mGy 10:08:22 Flurop Dose total: 518 10:08:27 Contrast amount:Isovue 300 40ml. 10:12:42 Procedure and supply charges have been captured, reviewed, submitted an d are correct. 10:12:50 Report given to Outpatients. 10:13:14 Patient transfered to Outpatients with Stretcher. 10:13:47 Full Disclosure recording stopped Device Usage Item Name Manufacture Quantity Catalog Hospital Part Current Mini mal Lot# / Number Charge Number Stock Stock Serial# Code Tegaderm 4 x 3M 1 1626W 143146 082569 631002 5 4 (1626W) Sterile Cardinal 1 [id number] 931500 617929 5 Angiographic Health Pack Bag Decanter Microtek 1 198975 48207 745803 5 () Medical Inc. ACIST Acist Medical 1 80258 029850 503610 160369 5 Manifold Systems Inc (11786) ACIST Hand Acist Medical 1 90340 713279 298011 886921 5 Control Systems Inc (63073) ACIST Syringe Acist Medical 1 02797 298903 134939 968984 20 (63143) Systems Inc TUBING [facility] Medical 1 [id number] 560025 555418 410035 5 Contrast Injection High Pressure (VRJ130K) SHEATH 5FR Terumo 1 RDK948 901679 392613 116121 5 Brogue (JQS888) Micropuncture VSI VASCULAR 1 7266V 374931 398617 5 VSI 4FR kit SOLUTIONS BENTSON 145cm [employer] 1 D48325 315381 343708 5 wire (J07227) Angiodynamics Angiodynamics 1 81779786 851847 89307 112444 5 SOS OMNI 2 NON B 5FR 65CM catheter (91617132) TRANSEND [place] 1 [id number] 643318 820134 5 STEERABLE Scientific wire ([id number]) RENEGADE [place] 1 [id number] 855801 929524 5 HI-LOU Scientific microcatheter ([id number]) COPILOT Valve Garcia 1 9125352 399283 842848 903385 5 Control Vascular (8428669) GLIDE WIRE GT Terumo 1 RG*[id number] 191624 398565 5 DOUBLE ANGLE .018 (RG*KO4909OV) [facility] 2 J82901 646351 1678 223886 [address] 3-Way Large 54018529 Bore (I91538) PARTICLES [place] 1 [id number] 859762 7500 448339 5 34161413 250-355 Scientific Microns ([id number]) COIL [place] [facility] 1 K61597 612746 106987 5 5216120 Micronester 6MM (Y97600) EXOSEAL 5Fr Cardinal 1 EX500 329410 258004 054376 10 36271124 (EX500) Health Signature Audit [place] Stage Time Signature Unsigned Intra-Procedure 05/29/2019 Kimberly Stewart 10:15:30 AM RT(R) [facility] [address] [place] [address]
[2019-05-29 06:15] LABS: BASOPHILS 1.2 % (0-2); EOSINOPHILS 11.8 % (0-7); HEMATOCRIT 34.1 % (36.0-48.0); HEMOGLOBIN 11.2 g/dL (12-16); IMMATURE GRANULOCYTES 0.2 % (0-5); LYMPHOCYTES 23.6 % (15-50); MCH 30.4 pg (26.0-34.0); MCHC 32.8 g/dL (31.0-37.0); MCV 92.7 fL (80.0-100.0); MEAN PLATELET VOLUME 8.8 fL (7.4-10.4); MONOCYTES 6.2 % (2-11); PLATELET COUNT 262 10x3/uL (130-400); RBC 3.68 10x6/uL (4.00-5.40); WBC 9.2 10x3/uL (4.8-10.8)
[2019-05-29 06:30] LABS: ANION GAP 10.6 mmol/L (8-16); CARBON DIOXIDE 29.8 mmol/L (21.0-32.0); CREATININE - SERUM 1.6 mg/dL (0.6-1.3); POTASSIUM - SERUM 3.4 mmol/L (3.5-5.1)
[2019-05-29] MEDS ORDERED: MAGNESIUM OXID250 MG PO (07:23)
[2019-05-29] MEDS ORDERED: PRAVACHOL40 MG PO (07:23)
[2019-05-29] MEDS ORDERED: TRIBENZOR 40-11 EAC1 (07:24)
[2019-05-29 07:39] VITALS: BP 143/54; Ht 165.1 cm; Wt 72.3 kg
[2019-05-29 07:44] LABS: APTT 30.1 SECONDS (22.8-39.4); INR 0.97 (0.85-1.17); PROTIME 12.9 SECONDS (11.6-15.0)
[2019-05-29] MEDS ORDERED: CREON (07:44)
== END 2019-05-29 14:18 | disposition home or self-care (01) ==
LOC: D.SP 05:41 → D.RAD 08:00 → D.SP 14:18
PROVIDERS: ATTEND Radiology Diagnostic Radiology
DX: D17.71 Benign lipomatous neoplasm of kidney (principal)

== ENCOUNTER 2019-11-28 09:51 | Emergency (ER) | payer MEDICARE, OTHER ==
[~2019-11-28] VITALS: Ht 165.1 cm; Wt 74.1 kg
[~2019-11-28 09:51] MED LIST changes: +CREON; +MAGNESIUM OXID250 MG PO; +TRIBENZOR 40-11 EAC1
[2019-11-28 09:59] VITALS: Ht 165.1 cm; Wt 74.1 kg
[2019-11-28 10:38] LABS: EOSINOPHILS 11.1 % (0-7); HEMATOCRIT 32.7 % (36.0-48.0); HEMOGLOBIN 10.9 g/dL (12-16); IMMATURE GRANULOCYTES 0.3 % (0-5); MCH 31.1 pg (26.0-34.0); MCHC 33.3 g/dL (31.0-37.0); MCV 93.2 fL (80.0-100.0); MEAN PLATELET VOLUME 8.8 fL (7.4-10.4); MONOCYTES 10.2 % (2-11); NEUTROPHILS 52.4 % (40-80); PLATELET COUNT 238 10x3/uL (130-400); RBC 3.51 10x6/uL (4.00-5.40); RDW 13.7 % (11.5-14.5); WBC 7.3 10x3/uL (4.8-10.8)
[2019-11-28 10:40] LABS: INR 0.91 (0.85-1.17); PROTIME 12.2 SECONDS (11.6-15.0)
[2019-11-28 10:43] LABS: CALC OSMOLALITY 292 mosm/kg (275-300); CALCIUM 9.3 mg/dL (8.5-10.1); CARBON DIOXIDE 28.9 mmol/L (21.0-32.0); CHLORIDE - SERUM 101 mmol/L (98-107); CREATININE - SERUM 1.9 mg/dL (0.6-1.3); POTASSIUM - SERUM 3.7 mmol/L (3.5-5.1); SODIUM 137 mmol/L (136-145); UREA NITROGEN 43 mg/dL (7-18); eGFR NON AFRICAN AMERICAN 27 mL/min (90-120)
[2019-11-28 10:46] LABS: GLUCOSE 251 mg/dL (74-106)
[2019-11-28 11:01] LABS: ALBUMIN 3.3 g/dL (3.4-5.0); ALKALINE PHOSPHATASE 80 U/L (30-120); ALT (SGPT) 61 U/L (10-68); BILIRUBIN - TOTAL 0.41 mg/dL (0.2-1.3); CKMB 2.8 U/L (0.0-3.6); CREATINE KINASE 90 UL (21-215); MAGNESIUM - SERUM 2.4 mg/dL (1.8-2.4); PROTEIN - SERUM 6.7 g/dL (6.4-8.2); THYROID STIMULATING HORMONE 1.44 uIU/mL (0.36-3.74); TROPONIN-I 0.019 ng/mL (0.000-0.060)
[2019-11-28 11:06] VITALS: BP 195/74
== END 2019-11-28 11:06 | disposition other institution (70) ==
LOC: D.ER 09:51
PROVIDERS: Family Medicine
DX: I61.0 Nontraumatic intracerebral hemorrhage in hemisphere, subcortical (principal); E11.40 Type 2 diabetes mellitus with diabetic neuropathy, unspecified; I10 Essential (primary) hypertension; J45.909 Unspecified asthma, uncomplicated; Z79.4 Long term (current) use of insulin

== ENCOUNTER → 2020-06-03 13:09 | Outpatient (CLI) | payer MEDICARE, OTHER ==
[2019-11-28 09:59] VITALS: BMI 27.1
== END | disposition home or self-care (01) ==
LOC: D.CT 13:00
PROVIDERS: ATTEND Psychiatry & Neurology Neurology
DX: Z86.73 Personal history of transient ischemic attack (TIA), and cerebral infarction without residual deficits (principal)

== ENCOUNTER 2020-07-29 02:03 | Inpatient (IN) | payer MEDICARE, OTHER ==
[~2020-07-29] VITALS: Ht 165.1 cm; Wt 69.9 kg
[2020-07-29] VITALS (9 sets, daily range): BP systolic 96–188; BP diastolic 43–70; BMI 25.6
--- NOTE | ~2020-07-29 | HEMODYNAMI ---
PATIENT:JOB FOWLER MEDICAL RECORD: [id number] : 47 LOCATION:D. D.2231 ADMISSION DATE: 07/29/20 Generatedon:110:58 Patient name: JOB FOWLER Patient #: [id number] SSN: D OB: 1945 Date of study: 08/03/2020 Page: Of Hemodynamic Procedure Report Patient Data Patient Demographics Procedure consent was obtained First Name: JOB Gender: Female Last Name: MALCOLM : 1945 Middle Initial: P Age: 74 year(s) Patient #: [id number] Race: Unknown Additional ID: [id number] Contact details Address: [place] [address] State: [place] City: [place] Zip code: [address] Past Medical History Allergies Allergen Reaction Date Comments Reported Other allergy 12/15/2014 morphine Other allergy 11/22/2017 LISINOPRIL, MORPHINE Morphine 05/29/2019 Other allergy 05/29/2019 lisinopril, Amoxicillin 05/29/2019 Admission Admission Data Admission Date: 07/29/2020 Admission Time: 5:39 Room #: D.2231 Procedure Procedure Types Cath Procedure Peripheral Cath Diagnostic Procedure Miscellaneous Procedure Description Procedure Date Procedure Date: 08/03/2020 Procedure Start Time: 10:38 Procedure Staff Name Function Preston Gamez MD Performing Physician Tra Keith RT Monitor Procedure Data Cath Procedure Fluoroscopy Diagnostic fluoroscopy Total fluoroscopy Time: 0 time: 0 min min Diagnostic fluoroscopy Total fluoroscopy dose: 0 dose: 0 mGy mGy Hemodynamics Rest Pre Cath Intra NCS Post Cath Procedure Log Time Note 10:22:15 Tra Keith RT (R) (CV) sent for patient. Start room use. 10:22:31 Patient received from Med/Surg to IR Alert and oriented. Tansferred to table in Supine position. 10:22:58 Signed procedure consent form obtained from patient. 10:23:00 Correct patient and procedure confirmed by team. 10:23:01 Full Disclosure recording started 10:23:02 - 10:23:04 Pre-procedure instructions explained to patient. 10:23:05 Pre-op teaching completed and patient verbalized understanding. 10:23:12 Is patient on blood thinner?Yes 10:23:17 ACC The patient was administered the following blood thiners within the last 24 hours: ACCPlavix 10:23:33 SAFE-T PLUS MYELOGRAM TRAY opened to sterile field. 10:24:30 LT FOOT PREPPED WITH BETADINE 10:37:33 Physician arrived 10:37:34 --------ALL STOP TIME OUT------ 10:37:34 Final Timeout: patient, procedure, and site verified with staff and physician. All members of the team are in agreement. 10:38:14 LT FOOT SITE VERIFIED WITH TEAM 10:38:25 Sedation plan: Local Anesthetic Medication:Lidocaine 10:38:40 Procedure started. 10:47:25 1% LIDO INJECTED LT FOOT PER 10:56:29 Procedure ended.(Physican Out) 10:57:11 Fluoroscopy time 00.00 minutes. 10:57:16 Fluoroscopy dose: 0 mGy 10:57:16 Flurop Dose total: 0 10:57:57 BANDAIDE APPLIED SITE STABLE SPECIMEN VERIFED AND SENT TO LAB PT SENT BACK TO ROOM Device Usage Item Name Manufacture Quantity Catalog Hospital Part Current Minimal Lot# / Number Charge Number Stock Stock Serial# Code SAFE-T CareFusion 1 [id number] [id number] 5 PLUS MYELOGRAM TRAY Signature Audit [place] Stage Time Signature Unsigned Intra-Procedure 08/03/2020 Tra 10:58:23 AM Sagar RT (R) (CV) [facility] [address] [place] [address]
--- NOTE | 2020-07-29 02:42 | NUR ---
BACK FROM ORDERED IMAGING AT THIS TIME.
[2020-07-29 03:16] LABS: BASOPHILS 0.4 % (0-2); EOSINOPHILS 0.5 % (0-7); HEMATOCRIT 31.8 % (36.0-48.0); HEMOGLOBIN 10.7 g/dL (12-16); IMMATURE GRANULOCYTES 0.5 % (0-5); LYMPHOCYTE ABS# 1.62 10x3/uL (1.18-3.74); MCH 30.4 pg (26.0-34.0); MCHC 33.6 g/dL (31.0-37.0); MCV 90.3 fL (80.0-100.0); MEAN PLATELET VOLUME 8.8 fL (7.4-10.4); MONOCYTES 11.4 % (2-11); NEUTROPHILS 75.2 % (40-80); PLATELET COUNT 226 10x3/uL (130-400); RBC 3.52 10x6/uL (4.00-5.40); RDW 13.8 % (11.5-14.5); WBC 13.5 10x3/uL (4.8-10.8)
[2020-07-29 03:30] LABS: CALC OSMOLALITY 274 mosm/kg (275-300); CALCIUM 8.4 mg/dL (8.5-10.1); CARBON DIOXIDE 24.2 mmol/L (21.0-32.0); CHLORIDE - SERUM 96 mmol/L (98-107); CREATININE - SERUM 2.2 mg/dL (0.6-1.3); POTASSIUM - SERUM 3.7 mmol/L (3.5-5.1); SODIUM 130 mmol/L (136-145); UREA NITROGEN 50 mg/dL (7-18); eGFR NON AFRICAN AMERICAN 23 mL/min (90-120)
[2020-07-29 03:35] LABS: APTT 30.7 SECONDS (22.8-39.4); INR 1.13 (0.85-1.17); PROTIME 13.4 SECONDS (11.6-15.0)
[2020-07-29 03:36] LABS: GLUCOSE 111 mg/dL (74-106)
[2020-07-29 03:52] LABS: ALKALINE PHOSPHATASE 102 U/L (30-120); ALT (SGPT) 82 U/L (10-68); BILIRUBIN - TOTAL 0.32 mg/dL (0.2-1.3); CKMB 2.7 U/L (0.0-3.6); CREATINE KINASE 79 UL (21-215); MAGNESIUM - SERUM 2.4 mg/dL (1.8-2.4); PROTEIN - SERUM 6.5 g/dL (6.4-8.2); THYROID STIMULATING HORMONE 0.73 uIU/mL (0.36-3.74)
[2020-07-29 04:00] LABS: TROPONIN-I 0.592 ng/mL (0.000-0.060)
[2020-07-29 05:10] LABS: BILIRUBIN NEGATIVE (NEGATIVE); KETONE NEGATIVE (NEGATIVE); NITRITE NEGATIVE (NEGATIVE); UROBILINOGEN NORMAL mg/dL (< 2)
[2020-07-29 05:11] LABS: UDS - AMPHET NEGATIVE QUAL (NEGATIVE); UDS - BARB NEGATIVE QUAL (NEGATIVE); UDS - BENZO NEGATIVE QUAL (NEGATIVE); UDS - COCAINE NEGATIVE QUAL (NEGATIVE); UDS - OPIATE NEGATIVE QUAL (NEGATIVE); UDS - PCP NEGATIVE QUAL (NEGATIVE); UDS - THC NEGATIVE QUAL (NEGATIVE)
[2020-07-29 05:12] LABS: AMORPHOUS SEDIMENT <1+ LPF (NONE SEEN); BACTERIA FEW HPF (NONE SEEN); SQUAMOUS EPITHELIAL 0-5 HPF (0-4); WHITE CELLS - URINE 0-5 HPF (0-4)
[2020-07-29] MEDS ORDERED: ZETIA10 MG PO (07:37)
[2020-07-29] MEDS ORDERED: ISOSORBIDE DINI10 MG PO (07:39)
[2020-07-29] MEDS ORDERED: COZAAR100 MG PO (07:40)
[2020-07-29] MEDS ORDERED: ADALAT CC90 MG PO (07:40)
--- NOTE | 2020-07-29 08:00 | NUR ---
RESTING IN BED WITH EYES OPEN, ALERT AND ORIENTED, AT THE BEDSIDE. PT REPORTS PAIN "14/10", V/S STABLE. CURRENTLY RCVING 4L VIA NC. ADDMISSION ASSESSMENT AND HX COMPLETE, PT ANSWERS QUESTIONS APPROPRIATELY. WILL CONT TO MONITOR.
[2020-07-30 01:08] VITALS: BP 162/58
[2020-07-30 05:41] VITALS: BP 180/59
[2020-07-30 05:53] LABS: BASOPHILS 0.4 % (0-2); EOSINOPHILS 0.1 % (0-7); HEMATOCRIT 30.6 % (36.0-48.0); IMMATURE GRANULOCYTES 0.3 % (0-5); LYMPHOCYTE ABS# 2.02 10x3/uL (1.18-3.74); LYMPHOCYTES 14.2 % (15-50); MCH 30.3 pg (26.0-34.0); MCHC 32.7 g/dL (31.0-37.0); MEAN PLATELET VOLUME 9.3 fL (7.4-10.4); MONOCYTES 13.2 % (2-11); NEUTROPHIL ABS# 10.19 10x3/uL (1.56-6.13); NEUTROPHILS 71.8 % (40-80); PLATELET COUNT 201 10x3/uL (130-400); RDW 14.4 % (11.5-14.5); WBC 14.2 10x3/uL (4.8-10.8)
[2020-07-30 06:03] LABS: MCV 92.7 fL (80.0-100.0)
[2020-07-30] MEDS ORDERED: BENADRYL25 MG PO (06:11)
[2020-07-30 06:30] LABS: ANION GAP 14.6 mmol/L (8-16); CALCIUM 8.3 mg/dL (8.5-10.1); CARBON DIOXIDE 21.3 mmol/L (21.0-32.0); CREATININE - SERUM 2.6 mg/dL (0.6-1.3); MAGNESIUM - SERUM 2.4 mg/dL (1.8-2.4); PHOSPHOROUS 4.2 mg/dL (2.5-4.9); POTASSIUM - SERUM 3.9 mmol/L (3.5-5.1); VANCOMYCIN - TROUGH 12.4 ug/mL (10.0-20.0)
--- NOTE | 2020-07-30 07:52 | NUR ---
RECIEVED BEDSIDE REPORT. AWAKE AND ORIENTED. X2 ASSIST TO BEDSIDE COMMODE. BACK TO BED. OXYGEN CANNULA IN PLACE. DENIES FURTHER NEEDS. WILL CONTINUE TO MONITOR.
[2020-07-30 09:07] VITALS: BP 138/59
[2020-07-30 14:06] VITALS: BP 155/59
[2020-07-30 16:12] VITALS: BP 140/63
[2020-07-30 19:21] LABS: ERYTHROCYTE SEDIMENTATION RATE 111 mm/hr (0-30)
[2020-07-30 20:00] VITALS: BP 172/61
[2020-07-31] VITALS: BP 155/60
[2020-07-31 07:40] VITALS: BP 108/81
--- NOTE | 2020-07-31 08:00 | NUR ---
RECIEVED BEDSIDE REPORT. BED LOW POSITION, CALL LIGHT IN REACH. AT BEDSIDE. DENIES NEEDS AT THIS TIME. FREE FROM SIGNS OF DISTRESS. WILL CONTINUE TO MONITOR.
[2020-07-31 08:29] VITALS: BP 134/54
--- NOTE | 2020-07-31 11:26 | NUR ---
SPOKE TO DR. CARCAMO BECAUSE PATIENT SAID SHE STRAINED TO HAVE A BM, AND WAS HAVING SOME RED BLEEDING. WILL CONTINUE TO MONITOR AND FOLLOW ORDERS.
[2020-07-31 13:34] VITALS: BP 145/44
[2020-07-31 17:30] VITALS: BP 129/47
--- NOTE | 2020-07-31 17:36 | NUR ---
PATIENT UP TO BEDSIDE COMMODE WITH X2 ASSIST. BACK TO BED. DENIES NEEDS AT THIS TIME. BED LOW POSITION, CALL LIGHT IN REACH. WILL CONTINUE TO MONITOR.
[2020-08-01] VITALS: BP 144/57
[2020-08-01 06:27] LABS: BASOPHILS 0.2 % (0-2); EOSINOPHILS 2.7 % (0-7); HEMATOCRIT 24.9 % (36.0-48.0); HEMOGLOBIN 8.3 g/dL (12-16); IMMATURE GRANULOCYTES 0.1 % (0-5); LYMPHOCYTE ABS# 1.14 10x3/uL (1.18-3.74); MCH 30.5 pg (26.0-34.0); MCHC 33.3 g/dL (31.0-37.0); MCV 91.5 fL (80.0-100.0); MEAN PLATELET VOLUME 8.9 fL (7.4-10.4); MONOCYTES 10.3 % (2-11); NEUTROPHIL ABS# 5.91 10x3/uL (1.56-6.13); NEUTROPHILS 72.7 % (40-80); PLATELET COUNT 197 10x3/uL (130-400); RBC 2.72 10x6/uL (4.00-5.40); RDW 14.2 % (11.5-14.5); WBC 8.1 10x3/uL (4.8-10.8)
[2020-08-01 06:53] LABS: ANION GAP 14.5 mmol/L (8-16); CALCIUM 7.8 mg/dL (8.5-10.1); CARBON DIOXIDE 19.3 mmol/L (21.0-32.0); CREATININE - SERUM 2.5 mg/dL (0.6-1.3); POTASSIUM - SERUM 3.8 mmol/L (3.5-5.1); VANCOMYCIN - TROUGH 10.6 ug/mL (10.0-20.0)
--- NOTE | 2020-08-01 08:00 | EC ---
PATIENT:JOB FOWLER DATE OF SERVICE: 07/29/20 SEX: F MEDICAL RECORD: [id number] DATE OF : 47 LOCATION:D.MS [facility] AGE OF PATIENT: 74 ADMISSION DATE: 07/29/20 REFERRING PHYSICIAN: INTERPRETING PHYSICIAN: MARÍA DOE MD ECHOCARDIOGRAM REPORT ECHO CHARGES 4 ECHO COMPLETE Date: 07/29/20 CLINICAL DIAGNOSIS: ELEVATED TROP ECHOCARDIOGRAPHIC MEASUREMENTS (adult normal given) AC root (d.<3.7cm) 3.6 cm LV Septum d (<1.2 cm> 1.3 cm Valve Excursion 1.8 cm LV Septum (systole) 1.7 cm Left Atria (s.<4.0cm> 4.4 cm LVPW d(<1.2cm) 0.9 cm RV (d.<2.3cm) 3.3 cm LVPW (sytole) 1.0 cm LV diastole(<5.6CM) 4.8 cm MV E-F(>70mm/sec) cm LV systole 3.7 cm LVOT Diameter 1.6 cm MV exc.(>10mm) 1.1 cm Est.ejection fraction (50-75%) % DOPPLER: LVIT cm/sec A 122 cm/sec E 70 cm/sec LA cm/sec RVSP 30 mmHg LVOT 83 cm/sec AOP1/2T m/s Asc. Ao 136 cm/sec RVOT 54 cm/sec RA cm/sec PA 71 cm/sec AV Gradient Peak 7.4 mmHg AV Mean 4.9 mmHg AV Area 1.6 cm MV Gradient Peak 8.0 mmHg MV Mean 2.9 mmHg MV Area cm COMMENTS: Geothermal Installer: Ja ANDINO Terrazzo Polisher Helper: 3 Dr. Jacinto TAPE# Pericardial Effusion N DATE OF SERVICE: Adequate 2D, color-flow imaging, spectral Doppler, and M-Mode FINDINGS: No LVH. LV internal dimensions are normal. Wall motion is normal. EF is greater than or equal to 55%. Aortic valve is sclerotic. No evidence of stenosis by Doppler interrogation. Left atrium is dilated at 4.4 cm. Mitral valve shows no prolapse. Trace MR. Right side is grossly normal. Mild TR. TRANSINT:[id number] Voice Confirmation ID: [id number] DOCUMENT ID: [id number] ECHOCARDIOGRAM REPORT [id number] FOSTER,JOB DOE,MARÍA Torres MD at 0800 CC: [id number] DICTATION DATE: 07/30/2059 COMPUTER GRAPHIC ARTIST: 07/30/20 1318 ADM IN [facility] [address] [place] [id number]
[2020-08-01 08:58] VITALS: BP 138/51
[2020-08-01 13:53] VITALS: BP 116/62
--- NOTE | 2020-08-01 17:01 | NUR ---
0700 BEDSIDE REPORT RECEIVED AWAKR ALERT ON BSC VOIDING
[2020-08-01 17:36] VITALS: BP 140/61
[2020-08-02] VITALS: BP 135/65
[2020-08-02 04:00] VITALS: BP 151/48
[2020-08-02 07:41] LABS: BASOPHILS 0.4 % (0-2); EOSINOPHILS 3.3 % (0-7); HEMATOCRIT 25.1 % (36.0-48.0); HEMOGLOBIN 8.3 g/dL (12-16); IMMATURE GRANULOCYTES 0.2 % (0-5); LYMPHOCYTE ABS# 1.09 10x3/uL (1.18-3.74); LYMPHOCYTES 12.9 % (15-50); MCH 30.6 pg (26.0-34.0); MCHC 33.1 g/dL (31.0-37.0); MCV 92.6 fL (80.0-100.0); MONOCYTES 13.8 % (2-11); NEUTROPHIL ABS# 5.86 10x3/uL (1.56-6.13); NEUTROPHILS 69.4 % (40-80); RBC 2.71 10x6/uL (4.00-5.40); RDW 14.3 % (11.5-14.5); WBC 8.5 10x3/uL (4.8-10.8)
[2020-08-02 07:43] LABS: PLATELET COUNT 251 10x3/uL (130-400)
[2020-08-02 07:59] LABS: ANION GAP 17.2 mmol/L (8-16); CALCIUM 8.2 mg/dL (8.5-10.1); CARBON DIOXIDE 17.5 mmol/L (21.0-32.0); CREATININE - SERUM 2.3 mg/dL (0.6-1.3); POTASSIUM - SERUM 3.7 mmol/L (3.5-5.1); VANCOMYCIN - TROUGH 16.2 ug/mL (10.0-20.0)
--- NOTE | 2020-08-02 08:13 | NUR ---
ALERT AND ORIENTED. ASSESSMENT COMPLETE. DENIES NEEDS. BED LOW. CALL WITT AND PERSONAL ITEMS IN REACH. WILL CONTINUE TO MONITOR.
[2020-08-02 09:25] VITALS: BP 169/74
[2020-08-02 12:42] VITALS: BP 138/55
[2020-08-02 14:03] VITALS: Ht 165.1 cm; Wt 69.9 kg
--- NOTE | 2020-08-02 16:30 | NUR ---
IV LEAKING TO LEFT AC. REMOVED WITH TIP INTACT. RESITED TO LEFT WRIST AFTER FIVE ATTEMPTS BY THREE NURSES. ABX STARTED.
[2020-08-02 18:14] VITALS: BP 134/81
[2020-08-02 20:00] VITALS: BP 110/74
--- NOTE | 2020-08-03 03:02 | NUR ---
I have reviewed this patient and I concur with the Shift Assessment completed by the Licensed Practical Nurse today this shift.
[2020-08-03 04:00] VITALS: BP 133/54
[2020-08-03 06:22] LABS: BASOPHILS 0.9 % (0-2); EOSINOPHILS 4.5 % (0-7); HEMATOCRIT 26.1 % (36.0-48.0); HEMOGLOBIN 8.5 g/dL (12-16); IMMATURE GRANULOCYTES 0.3 % (0-5); LYMPHOCYTE ABS# 1.09 10x3/uL (1.18-3.74); LYMPHOCYTES 16.3 % (15-50); MCH 30.5 pg (26.0-34.0); MCHC 32.6 g/dL (31.0-37.0); MCV 93.5 fL (80.0-100.0); MEAN PLATELET VOLUME 8.9 fL (7.4-10.4); MONOCYTES 13.8 % (2-11); NEUTROPHILS 64.2 % (40-80); PLATELET COUNT 288 10x3/uL (130-400); RBC 2.79 10x6/uL (4.00-5.40); RDW 14.3 % (11.5-14.5); WBC 6.7 10x3/uL (4.8-10.8)
[2020-08-03 06:45] LABS: CALCIUM 8.4 mg/dL (8.5-10.1); CARBON DIOXIDE 19.6 mmol/L (21.0-32.0); CREATININE - SERUM 2.1 mg/dL (0.6-1.3); POTASSIUM - SERUM 3.6 mmol/L (3.5-5.1); VANCOMYCIN - TROUGH 21.5 ug/mL (10.0-20.0)
[2020-08-03 09:01] VITALS: BP 128/78
--- NOTE | 2020-08-03 10:23 | NUR ---
TAKEN TO IR PER BED
[2020-08-03 13:55] VITALS: BP 145/60
[2020-08-03 17:46] VITALS: BP 149/80
[2020-08-03 20:00] VITALS: BP 181/65
[2020-08-04 04:00] VITALS: BP 168/74
--- NOTE | 2020-08-04 04:35 | NUR ---
AT BEDSIDE, PAIN WAS MANAGED WITH THE PRESCRIBED PAIN MEDICATION, SHE IS CURRENTLY RESTING IN BED WITH HER EYES CLOSED.
[2020-08-04 06:12] LABS: BASOPHILS 0.8 % (0-2); EOSINOPHILS 6.3 % (0-7); HEMATOCRIT 23.8 % (36.0-48.0); HEMOGLOBIN 7.6 g/dL (12-16); IMMATURE GRANULOCYTES 0.3 % (0-5); LYMPHOCYTE ABS# 1.25 10x3/uL (1.18-3.74); LYMPHOCYTES 19.3 % (15-50); MCH 30.3 pg (26.0-34.0); MCHC 31.9 g/dL (31.0-37.0); MCV 94.8 fL (80.0-100.0); MEAN PLATELET VOLUME 8.8 fL (7.4-10.4); MONOCYTES 14.4 % (2-11); NEUTROPHIL ABS# 3.82 10x3/uL (1.56-6.13); NEUTROPHILS 58.9 % (40-80); PLATELET COUNT 316 10x3/uL (130-400); RBC 2.51 10x6/uL (4.00-5.40); RDW 14.6 % (11.5-14.5); WBC 6.5 10x3/uL (4.8-10.8)
[2020-08-04 06:34] LABS: ANION GAP 16.6 mmol/L (8-16); CALCIUM 8.3 mg/dL (8.5-10.1); CARBON DIOXIDE 18.3 mmol/L (21.0-32.0); CREATININE - SERUM 2.1 mg/dL (0.6-1.3); POTASSIUM - SERUM 3.9 mmol/L (3.5-5.1); VANCOMYCIN - TROUGH 20.7 ug/mL (10.0-20.0)
[2020-08-04 08:57] VITALS: BP 133/50
--- NOTE | 2020-08-04 12:52 | NUR ---
Nutrition follow-up: Diet order: Consistent CHO with 45 gm CHO at meals PO intake 75-100% of meals Labs reviewed; glucose under good control Wt: 154# No BM charted since admit; Colace, Miralax ordered Pt continues to make progress toward nutrition goals. RDN will follow-up: 08/10/20
[2020-08-04 13:11] VITALS: BP 122/63
--- NOTE | 2020-08-04 17:35 | NUR ---
0700 BEDSIDE REPORT RECEIVED AWAKE ALERT SITTING UP INI BED VOICES NO COMPLAINTS SPOUSE REMAINS AT BEDSIDE
--- NOTE | 2020-08-04 17:36 | NUR ---
0800 ASSIST X 2 UP TO BEDSIDE MADDIEODE LEROY WELL VOIDED
--- NOTE | 2020-08-04 17:37 | NUR ---
1030 PHTSICAL THERAPY WORKING WITH PATIENT
--- NOTE | 2020-08-04 17:37 | NUR ---
1700 BLOOD READY CONSENT SIGNED FRO PRBC INFUSION SPOUSE AT NURSING STATION SAYING TO DR LEROY MCWILLIAMS THAT PT WANTS A PICC LINE PT HGB 7.6 2 UNITS ORDERED EXPLAINED TO SPOUSE THAT I WOULD LIKE TO TRY FOR IV START FIRST [facility] STATED THAT PICC PLACEMENT WONT BE UNTIL TOMORROW NOTIFIED [facility]AR OF NEED FOR MIDLINE PLACEMENT SAID SHE WILL BE DOWN TO MED/SURG SHORTLY FOR MIDLINE PLACEMENT
[2020-08-04 20:00] VITALS: BP 178/69
--- NOTE | 2020-08-04 21:00 | NUR ---
PT NEW PVL IN LT AC HAS INFULTRATED. CALLED DR MCWILLIAMS TO SEE ABOUT MIDLINE PER PT REQUEST FOR HER BLOOD TRANSFUSION. DR MCWILLIAMS ORDER TO HOLD OFF TILL AM ON BLOOD TRANSFUSION AND CENTRAL LINE PLACEMENT. WILL FALLOW UP.
[2020-08-05] VITALS: BP 165/55
[2020-08-05 04:00] VITALS: BP 151/63
--- NOTE | 2020-08-05 04:00 | NUR ---
I have reviewed this patient and I concur with the Shift Assessment completed by the Licensed Practical Nurse today this shift.
[2020-08-05 07:05] LABS: BASOPHILS 0.5 % (0-2); EOSINOPHILS 7.1 % (0-7); HEMOGLOBIN 7.9 g/dL (12-16); IMMATURE GRANULOCYTES 0.5 % (0-5); LYMPHOCYTE ABS# 1.58 10x3/uL (1.18-3.74); LYMPHOCYTES 24.5 % (15-50); MCHC 31.6 g/dL (31.0-37.0); MCV 95.1 fL (80.0-100.0); MEAN PLATELET VOLUME 8.7 fL (7.4-10.4); MONOCYTES 12.1 % (2-11); NEUTROPHIL ABS# 3.57 10x3/uL (1.56-6.13); NEUTROPHILS 55.3 % (40-80); PLATELET COUNT 357 10x3/uL (130-400); RBC 2.63 10x6/uL (4.00-5.40); RDW 14.6 % (11.5-14.5); WBC 6.5 10x3/uL (4.8-10.8)
[2020-08-05 07:24] LABS: ANION GAP 14.8 mmol/L (8-16); CALCIUM 8.3 mg/dL (8.5-10.1); CARBON DIOXIDE 20.4 mmol/L (21.0-32.0); CREATININE - SERUM 2.2 mg/dL (0.6-1.3); POTASSIUM - SERUM 4.2 mmol/L (3.5-5.1); VANCOMYCIN - TROUGH 16.9 ug/mL (10.0-20.0)
--- NOTE | 2020-08-05 07:46 | NUR ---
SITTING UP IN CHAIR AT BEDSIDE, ALERT AND ORIENTED. IV LOCATED TO LEFT WRIST CURRENTLY RUNNING ABX. AT THE BEDSIDE. CURRENTLY RCVING 3L VIA NC. NO CURRENT S/S OF DISTRESS AT THIS TIME, DENIES CURRENT NEEDS, WILL CONT TO MONITOR.
--- NOTE | 2020-08-05 07:58 | NUR ---
SPOKE WITH ABOUT PT NEEDING MIDLINE FOR BLOOD TRANSFUSION. WAS ADVISED TO CALL [employer] [facility], SPOKE WITH MICHAEL WHO STATES SHE WILL CALL AND TRY TO FIND SOMEONE TO PLACE LINE, WILL CALL ME BACK SHORTLY. WILL CONT TO MONITOR.
[2020-08-05 10:18] VITALS: BP 145/59
--- NOTE | 2020-08-05 10:30 | NUR ---
ASSITED PT TO BSC, LINENS CHANGED TO BED.
[2020-08-05 13:05] VITALS: BP 148/61
--- NOTE | 2020-08-05 15:35 | MORECARE ---
CASE MANAGEMENT DISCHARGE SUMMARY PATIENT: JOB FOWLER UNIT: [id number] ADM DATE: 07/29/20 AGE: 74 : 46 SEX: F ROOM/BED: [facility] AUTHOR: BERE,DOC PHYSICIAN: REFERRING PHYSICIAN: GOPI CARCAMO MD DATE OF SERVICE: 08/05/20 Case Management Discharge Planning Summary COMMENTS ENTERED DATE: 08/05/20 15:28 CT COMMENT TYPE: Discharge Planning REVIEWER: Tanvi Morales Inpatient rehab at [facility] will admit the patient on Saturday if she is stable to come DCP REVIEW SUMMARY ANTICIPATED D/C DATE: EXPECTED LOS : CASE STATUS: DCP Initiated INITIAL REVIEW: 07/29/2020 INITIAL REVIEWER: Tanvi Morales FINAL DISCHARGE DISPOSITION: : FINAL REVIEWER: FINAL REVIEW DATE: DCP Focus Questions & Answers QUESTION: ANSWER : PATIENT: JOB FOWLER ENCOUNTER: [id number] MEDICAL RECORD#: [id number] ADMISSION DATE: 07/29/2020 DISCHARGE DATE: ATTENDING MD: GOPI NICK : AGE: 74 MARITAL STATUS: M DC PLAN ID: [id number] FACILITY: [facility] PRINTED ON: 08/05/20 15:35 CT All edits/amendments must be made on the electronic document DICTATION DATE: 08/05/201534 RESIDENT CARE AIDE: KIT 08/05/201534 RPT#: [id number] DC DATE: STATUS: ADM IN [facility] [address] [place] [address] END OF REPORT
--- NOTE | 2020-08-05 15:54 | NUR ---
OT NOTE: PT REQUIRED MAX A FOR LB HYGIENE. PT COMPLETED GARMENT MANAGMENT WITH MIN A. PT COMPLETED BSC TO BED TSF WITH MIN A. [phone] ABEL GERARD COTA
--- NOTE | 2020-08-05 17:28 | NUR ---
UNIT 2 OF 2 PRBC STARTED.
[2020-08-05 17:31] VITALS: BP 166/59
--- NOTE | 2020-08-05 18:30 | NUR ---
THANK YOU FOR THIS REFERRAL. VISITED WITH PATIENT AND SHE IS AGREEABLE TO COME TO REHAB. SCREEN SUBMITTED. ADMISSION PENDING FOR 08/07/2020 IF PATIENT IS STABLE. NOTIFIED JUAN Torres, PAPER COUNTER - LEE REID LPN, CLINICAL LIAISON
[2020-08-05 21:07] VITALS: BP 166/93
[2020-08-06 01:18] VITALS: BP 160/60
--- NOTE | 2020-08-06 04:17 | NUR ---
I have reviewed this patient and I concur with the Shift Assessment completed by the Licensed Practical Nurse today this shift.
[2020-08-06 06:21] VITALS: BP 155/74
[2020-08-06 07:55] LABS: VANCOMYCIN - TROUGH 19.8 ug/mL (10.0-20.0)
[2020-08-06 09:11] VITALS: BP 161/61
[2020-08-06 09:50] LABS: BASOPHILS 0.9 % (0-2); EOSINOPHILS 5.3 % (0-7); HEMOGLOBIN 10.7 g/dL (12-16); IMMATURE GRANULOCYTES 1.4 % (0-5); LYMPHOCYTE ABS# 1.64 10x3/uL (1.18-3.74); LYMPHOCYTES 25.3 % (15-50); MCH 30.5 pg (26.0-34.0); MCHC 32.8 g/dL (31.0-37.0); MEAN PLATELET VOLUME 8.7 fL (7.4-10.4); MONOCYTES 11.1 % (2-11); NEUTROPHIL ABS# 3.62 10x3/uL (1.56-6.13); PLATELET COUNT 298 10x3/uL (130-400); RBC 3.51 10x6/uL (4.00-5.40); RDW 14.6 % (11.5-14.5); WBC 6.5 10x3/uL (4.8-10.8)
[2020-08-06 09:51] LABS: HEMATOCRIT 32.6 % (36.0-48.0); MCV 92.9 fL (80.0-100.0)
--- NOTE | 2020-08-06 11:36 | NUR ---
RESTING IN BED, NO DISTRESS NOTED, UP WITH 2 ASSIST TO BR, CONT TO MONITOR SUGARS, IJ TO R NECK INFUSING FLUIDS
[2020-08-06 13:20] VITALS: BP 161/66
[2020-08-06 18:27] VITALS: BP 160/60
--- NOTE | 2020-08-06 22:00 | NUR ---
A&O X 4, @ BS. PT REPORTS BLE HAVE BEEN SWELLING DURING HOSPITALIZATION. GENERALIZED EDEMA NOTED, 2+. IJ SALINE LOCKED, ENCOURAGED PT TO ELEVATE EXTREMETIES MUCH POSSIBLE. CTM.
[2020-08-07 01:24] VITALS: BP 158/71
--- NOTE | 2020-08-07 03:56 | NUR ---
I have reviewed this patient and I concur with the Shift Assessment completed by the Licensed Practical Nurse today this shift.
[2020-08-07 05:54] VITALS: BP 176/90
[2020-08-07 06:19] LABS: BASOPHILS 0.9 % (0-2); EOSINOPHILS 5.5 % (0-7); HEMATOCRIT 33.4 % (36.0-48.0); HEMOGLOBIN 10.6 g/dL (12-16); IMMATURE GRANULOCYTES 0.8 % (0-5); LYMPHOCYTE ABS# 1.69 10x3/uL (1.18-3.74); LYMPHOCYTES 21.7 % (15-50); MCH 30.2 pg (26.0-34.0); MCHC 31.7 g/dL (31.0-37.0); MCV 95.2 fL (80.0-100.0); MEAN PLATELET VOLUME 8.9 fL (7.4-10.4); MONOCYTES 7.4 % (2-11); NEUTROPHIL ABS# 4.96 10x3/uL (1.56-6.13); NEUTROPHILS 63.7 % (40-80); PLATELET COUNT 355 10x3/uL (130-400); RBC 3.51 10x6/uL (4.00-5.40); RDW 15.2 % (11.5-14.5); WBC 7.8 10x3/uL (4.8-10.8)
[2020-08-07 06:35] LABS: ANION GAP 14.3 mmol/L (8-16); CALCIUM 8.9 mg/dL (8.5-10.1); CARBON DIOXIDE 22.5 mmol/L (21.0-32.0); CREATININE - SERUM 1.9 mg/dL (0.6-1.3); POTASSIUM - SERUM 3.8 mmol/L (3.5-5.1); VANCOMYCIN - TROUGH 14.9 ug/mL (10.0-20.0)
--- NOTE | 2020-08-07 07:45 | NUR ---
up to bsc, in room, no distress noted, ij in place, cont to monitor blood counts and sugars
[2020-08-07 09:42] VITALS: BP 171/76
[2020-08-07] MEDS ORDERED: PLAVIX75 MG PO (10:10)
[2020-08-07] MEDS ORDERED: HYDROCODON-ACE1 EA10 PO (10:12)
--- NOTE | 2020-08-07 14:30 | NUR ---
REPORT CALLED TO ERLIDNA ISRAEL IN REHAB, PT IJ REMOVED PER DR ORDERS, PRESSURE APPLIED TO CONTROL BLEEDING, TAKEN TO REHAB PER W/C
[2020-08-07 14:35] VITALS: BP 172/71
--- NOTE | 2020-08-07 16:06 | MORECARE ---
CASE MANAGEMENT DISCHARGE SUMMARY PATIENT: JOB FOWLER UNIT: [id number] ADM DATE: 07/29/20 AGE: 74 : 46 SEX: F ROOM/BED: [facility] AUTHOR: BERE,DOC PHYSICIAN: REFERRING PHYSICIAN: GPOI CARCAMO MD DATE OF SERVICE: 08/07/20 Case Management Discharge Planning Summary COMMENTS ENTERED DATE: 08/05/20 15:28 CT COMMENT TYPE: Discharge Planning REVIEWER: Tanvi Morales Inpatient rehab at [facility] will admit the patient on Saturday if she is stable to come DCP REVIEW SUMMARY ANTICIPATED D/C DATE: EXPECTED LOS : CASE STATUS: DCP Initiated INITIAL REVIEW: 07/29/2020 INITIAL REVIEWER: Tanvi Morales FINAL DISCHARGE DISPOSITION: : FINAL REVIEWER: FINAL REVIEW DATE: DCP Focus Questions & Answers QUESTION: ANSWER : PATIENT: JOB FOWLER ENCOUNTER: [id number] MEDICAL RECORD#: [id number] ADMISSION DATE: 07/29/2020 DISCHARGE DATE: 08/07/2020 ATTENDING MD: GOPI NICK : AGE: 74 MARITAL STATUS: M DC PLAN ID: [id number] FACILITY: [facility] PRINTED ON: 08/07/20 16:06 CT All edits/amendments must be made on the electronic document DICTATION DATE: 08/07/201605 CRABBING MACHINE OPERATOR: KIT 08/07/201605 RPT#: [id number] DC DATE:08/07/20 STATUS: DIS IN [facility] [address] [place] [address] END OF REPORT
--- NOTE | 2020-08-07 18:15 | MORECARE ---
CASE MANAGEMENT DISCHARGE SUMMARY PATIENT: JOB FOWLER UNIT: [id number] ADM DATE: 07/29/20 AGE: 74 : 46 SEX: F ROOM/BED: [facility] AUTHOR: BERE,DOC PHYSICIAN: REFERRING PHYSICIAN: GOPI CARCAMO MD DATE OF SERVICE: 08/07/20 Case Management Discharge Planning Summary COMMENTS ENTERED DATE: 08/05/20 15:28 CT COMMENT TYPE: Discharge Planning REVIEWER: Tanvi Morales Inpatient rehab at [facility] will admit the patient on Saturday if she is stable to come DCP REVIEW SUMMARY ANTICIPATED D/C DATE: EXPECTED LOS : CASE STATUS: DCP Initiated INITIAL REVIEW: 07/29/2020 INITIAL REVIEWER: Tanvi Morales FINAL DISCHARGE DISPOSITION: : FINAL REVIEWER: FINAL REVIEW DATE: DCP Focus Questions & Answers QUESTION: ANSWER : PATIENT: JOB FOWLER ENCOUNTER: [id number] MEDICAL RECORD#: [id number] ADMISSION DATE: 07/29/2020 DISCHARGE DATE: 08/07/2020 ATTENDING MD: GOPI NICK : AGE: 74 MARITAL STATUS: M DC PLAN ID: [id number] FACILITY: [facility] PRINTED ON: 08/07/20 18:15 CT All edits/amendments must be made on the electronic document DICTATION DATE: 08/07/201814 CUFF RUNNER: KIT 08/07/201814 RPT#: [id number] DC DATE:08/07/20 STATUS: DIS IN [facility] [address] [place] [address] END OF REPORT
== END 2020-08-07 14:30 | DRG 553 ==
LOC: D.ER 02:03 → D.MS 05:39
PROVIDERS: Family Medicine; General Practice; Internal Medicine Hematology & Oncology; Orthopaedic Surgery; ADMIT Family Medicine; ATTEND Family Medicine
PROC: 0Y9N3ZZ Drainage of Left Foot, Percutaneous Approach (ICD-10-PCS; principal; 2020-08-03 10:33)
DX: M14.672 Charcot's joint, left ankle and foot (principal); I21.4 Non-ST elevation (NSTEMI) myocardial infarction; M86.172 Other acute osteomyelitis, left ankle and foot; N39.0 Urinary tract infection, site not specified; R78.81 Bacteremia; N17.9 Acute kidney failure, unspecified; I10 Essential (primary) hypertension; E78.5 Hyperlipidemia, unspecified; I25.10 Atherosclerotic heart disease of native coronary artery without angina pectoris; Z95.5 Presence of coronary angioplasty implant and graft; E11.9 Type 2 diabetes mellitus without complications; D64.9 Anemia, unspecified

== ENCOUNTER 2020-08-07 13:54 | Inpatient (IN) | payer MEDICARE, OTHER ==
[~2020-08-07] VITALS: Ht 165.1 cm; Wt 72.4 kg
[~2020-08-07 13:54] MED LIST changes: +ADALAT CC90 MG PO; +BENADRYL25 MG PO; +COZAAR100 MG PO; +HYDROCODON-ACE1 EA10 PO; +ISOSORBIDE DINI10 MG PO
--- NOTE | 2020-08-07 15:10 | NUR ---
SHE IS FROM [facility]. SHE IS ALERT, TALKING. HAS BRUISING ON BOTH ARMS. HAS A DRESSING TO HER RIGHT SIDE OF HER NECK FROM A CENTRAL LINE WAS REMOVED- CLEAN, DRY AND INTACT. SHE HAS SWELLING FROM THE HIPS DOWN. THE LEFT ANKLE IS SWOLLEN AND HAS REDNESS. HAS A INJECTION SITE IN THE LEFT ANKLE WHERE THE REDNESS IS. HER RIGHT FOOT/ANKLE IS SWOLLEN AND HAS A HARDEN AREA IN THE MIDDDLE OF THE SOLE OF HER FOOT. SHE HAS A DEEP TISSUE INJURY TO HER COCCYX. SHE IS ASKING ABOUT SIGNING A BED ALARM WAIVER, BUT ALMOST FELL GETTING INTO THE WHEELCHAIR TO GO TO THE BATHROOM. SHE STATED SHE HAD FALLEN AT 2 OTHER FACILITIES. I SUGGESTED WER WAIT A FEW DAYS TO SEE HOW SHE IS DOING. SHE AGREED WITH THIS. THE CALL LIGHT IS WITHIN REACH AND THE BED ALARM IS ON.
[2020-08-07 15:21] VITALS: BP 184/79; BMI 26.0
[2020-08-07 19:00] VITALS: BP 211/96
[2020-08-07 20:00] VITALS: BP 183/79
--- NOTE | 2020-08-07 20:00 | NUR ---
PATIENT RECEIVED SITTING UP IN WHEELCHAIR. ASSESSMENT & VITAL SIGNS DONE. NO C/O PAIN OR DISTRESS AT THIS TIME. IN ROOM. CALL LIGHT WITHIN REACH. WILL CONTINUE TO MONITOR.
[2020-08-07 21:00] VITALS: BP 182/79; BP 192/84
[2020-08-07 22:00] VITALS: BP 205/82
[2020-08-07 23:00] VITALS: BP 191/83
--- NOTE | 2020-08-07 23:24 | NUR ---
PATIENT HIGH BLOOD PRESSURE IS BEING MONITORED. PATIENT TOILETED & RETURNED TO LOW BED. PATIENT C/O LEFT LEG & FOOT PAIN. PAIN MEDICATION GIVE. ALARM ON. CALL LIGHT & BEDSIDE TABLE WITHIN REACH. WILL CONTINUE TO MONITOR.
--- NOTE | 2020-08-07 23:28 | NUR ---
PATIENT ISORBIDE DINETRATE FELL TERRY FLOOR. WILL PULL ANOTHER ON.
--- NOTE | 2020-08-08 03:40 | NUR ---
PATIENT USED CALL LIGHT FOR ASSIST TO BATHROOM. PATIENT STANDBY ASSIST TO & FROM BATHROOM. VOID ONLY. RETURNED TO LOW BED. ALARM ON. CALL LIGHT WITHIN REACH. WILL CONTINUE TO MONITOR.
--- NOTE | 2020-08-08 05:09 | NUR ---
I have reviewed this patient and I concur with the Shift Assessment completed by the Licensed Practical Nurse today this shift.
[2020-08-08 06:58] LABS: ANION GAP 14.9 mmol/L (8-16); CARBON DIOXIDE 23.9 mmol/L (21.0-32.0); CREATININE - SERUM 1.6 mg/dL (0.6-1.3); POTASSIUM - SERUM 3.8 mmol/L (3.5-5.1)
[2020-08-08 07:47] LABS: BASOPHILS 1.1 % (0-2); EOSINOPHILS 3.7 % (0-7); HEMATOCRIT 34.9 % (36.0-48.0); HEMOGLOBIN 11.3 g/dL (12-16); LYMPHOCYTES 22.8 % (15-50); MCH 30.5 pg (26.0-34.0); MCHC 32.4 g/dL (31.0-37.0); MCV 94.1 fL (80.0-100.0); MEAN PLATELET VOLUME 8.9 fL (7.4-10.4); MONOCYTES 7.7 % (2-11); NEUTROPHIL ABS# 4.47 10x3/uL (1.56-6.13); NEUTROPHILS 63.7 % (40-80); PLATELET COUNT 351 10x3/uL (130-400); RBC 3.71 10x6/uL (4.00-5.40); RDW 14.8 % (11.5-14.5)
[2020-08-08 07:55] VITALS: BP 180/78
--- NOTE | 2020-08-08 08:00 | NUR ---
PT RESTING IN BED WITH EYES OPEN CALL LIGHT IN REACH NO PROBLEMS WILL MONITER
[2020-08-08 15:16] VITALS: BMI 25.9
--- NOTE | 2020-08-08 18:41 | NUR ---
PT RESTING IN BED WITH EYES OPEN CALL LIGHT IN REACH NO PROBLEMS WILL MONITER
[2020-08-08 19:37] VITALS: BP 171/70
--- NOTE | 2020-08-09 03:35 | NUR ---
PT C/O SHAKINESS, FEELING HOT AND SWEATING. BLOOD SUGAR IS 51. GAVE HER 2 ORANGE JUICE CUPS AND 1 PACKAGE OF POWER CRACKERS THEN RECHECKED AND IT WAS 78. SHE REQUESTED AND I GAVE HER 1 MORE PACKAGE OF POWER CRACKERS AND 1 PUDDING. ASSISTED TO RESTROOM AND BACK TO BED. SHE REPORTS FEELING BETTER NOW. SHE DOES REPORT PAIN 6/10 TO LEFT FOOT. HYDROCODONE GIVEN ORDERED. BED ALARM ON AND CALL LIGHT WITHIN REACH.
--- NOTE | 2020-08-09 06:13 | NUR ---
BLOOD SUGAR RECHECK IS 99.
[2020-08-09 07:31] VITALS: BP 206/93
--- NOTE | 2020-08-09 08:00 | NUR ---
PT RESTING IN BED WITH EYES OPEN CALL LIGHT IN REACH WILL MONITER
--- NOTE | 2020-08-09 11:53 | NUR ---
PT REFUSED INSULIN SHE SAID HER BS WAS LOW IN THE AM AND SHE HAD EXTRA JUICE AND FEELS LIKE THIS IS WHY IT IS ELEVATED AND THAT SHE IS AFRAID IF SHE TAKES INSULIN SHE MAY BOTTOM OUT
--- NOTE | 2020-08-09 14:52 | NUR ---
PATIENT ADMITTS TO [facility] FROM ACUTE FLOOR. HER PCP IS DR. CARCAMO. DME AT HOME IS A WALKER. AT DISCHARGE PATIENT PLANS ON RETURNING TO HER HOME.WILL CONTINUE TO FOLLOW WITH PATIENT.
--- NOTE | 2020-08-09 18:39 | NUR ---
PT RESTING IN BED WITH EYES OPEN CALL LIGHT IN REACH NO PROBLEMS WILL MONITER
[2020-08-09 20:09] VITALS: BP 164/67
[2020-08-10 07:04] LABS: BASOPHILS 0.9 % (0-2); EOSINOPHILS 4.1 % (0-7); HEMATOCRIT 31.4 % (36.0-48.0); HEMOGLOBIN 10.6 g/dL (12-16); LYMPHOCYTES 18.4 % (15-50); MCH 30.6 pg (26.0-34.0); MCHC 33.7 g/dL (31.0-37.0); MCV 90.9 fL (80.0-100.0); MEAN PLATELET VOLUME 6.1 fL (7.4-10.4); MONOCYTES 8.6 % (2-11); PLATELET COUNT 404 10x3/uL (130-400); RBC 3.45 10x6/uL (4.00-5.40); RDW 14.2 % (11.5-14.5); WBC 8.1 10x3/uL (4.8-10.8)
[2020-08-10 07:15] LABS: ANION GAP 12.7 mmol/L (8-16); CALCIUM 8.8 mg/dL (8.5-10.1); CARBON DIOXIDE 27.2 mmol/L (21.0-32.0); CREATININE - SERUM 1.7 mg/dL (0.6-1.3); POTASSIUM - SERUM 3.9 mmol/L (3.5-5.1)
--- NOTE | 2020-08-10 07:45 | NUR ---
PATIENT IS ALERT/ORIENT. SITTING UP IN WHEELCHAIR AT BEDSIDE. CALL LIGHT WITHIN REACH. VOICES NO NEEDS AT THIS TIME. WILL CONTINUE WITH PLAN OF CARE
[2020-08-10 08:09] VITALS: BP 124/61; BP 202/77
--- NOTE | 2020-08-10 13:21 | NUR ---
SPOKE WITH SAMMY ISRAEL AT DR RICHARDS OFFICE TO NOTIFIY DR RICHARDS OF CONSULT. DR AYON DENTAL TECHNICIAN METAL.
--- NOTE | 2020-08-10 14:34 | NUR ---
ASMMY CEDENO INTO SEE PATIENT. NEW ORDERS RECEIVED
--- NOTE | 2020-08-10 16:00 | NUR ---
I have reviewed this patient and I concur with the Shift Assessment completed by the Licensed Practical Nurse today this shift.
[2020-08-10 16:27] VITALS: Ht 165.1 cm; Wt 72.4 kg
--- NOTE | 2020-08-10 19:04 | NUR ---
HERE TO VISIT PATIENT. PATIENT AND DOWN IN REHAB ROOM. TALKING TO FAMILY ON CELL PHONE. PATIENT UNABLE TO GET GOOD SOFTWARE LICENSING EXECUTIVE ON CELL PHONE IN OWN ROOM.
[2020-08-10 20:05] VITALS: BP 169/70
--- NOTE | 2020-08-10 23:34 | NUR ---
PT REFUSED THE 6 UNITS OF HUMULIN, REQUESTED ONLY 2 UNITS, STATED THAT WITH THE 25 UNITS OF LANTUS THAT HER BS WOULD DROP TOO LOW BY 3AM
--- NOTE | 2020-08-11 04:59 | RHP ---
PATIENT: JOB FOWLER MEDICAL RECORD: [id number] ACCOUNT: [id number] LOCATION:[facility] : 47 ADMISSION DATE: 08/07/20 REHABILITATION HISTORY AND PHYSICAL EXAMINATION POST ADMISSION PHYSICIAN EXAMINATION POST ADMISSION PHYSICAL EXAMINATION AND HISTORY AND PHYSICAL ADMITTING DIAGNOSIS: Sequelae of a stroke. HISTORY OF PRESENT ILLNESS: The patient is a 74-year-old female patient who requires inpatient rehabilitation for stroke sequelae and aphasia. On 07/29/2020, she had a history of Charcot from her diabetes and previous stroke. She presented to the ER with left foot pain and problems finding her words. The patient is having exacerbations of her chronic problems due to the bone infection. Dr. Lee is her regular doctor. The patient was living at home with her spouse. She reports to the nurse that she had ambulated at home utilizing her furniture. She did use a rolling walker outside home, but preferred utilizing furniture inside her house. Dr. Alaniz has her wearing a Cam boot on her left lower extremity at all times and to limit weightbearing to this. Physical therapy reports that she sit to stand moderate assist, bed to chair moderate assist. She balances fair. She is able to use a wheeled walker. The patient is very anxious. She is short of breath at times. She is a good candidate for rehabilitation to improve her independence, balance, gait ability and when cleared by ortho to start using that foot for some weightbearing activity. The patient reports difficulty also on forming and remembering words secondary to previous CVA. She definitely benefit from inpatient rehabilitation. COMORBIDITIES: Include arthritis, asthma, coronary artery disease, CVA, decreased mobility, depression, diabetes, dysphagia, hypertension, peripheral vascular disease, decrease in physical functioning. PAST MEDICAL HISTORY: Significant for a neuropathy. She has got a history of dysphagia, nasal drainage, diabetes, coronary artery disease, peripheral vascular disease, asthma, arthritis, chronic back pain, polymyalgia rheumatica, menopause, depression. PAST SURGICAL HISTORY: Includes gallbladder surgery, back surgery. She has had oral surgery. She has had stents in the past, left foot surgery, and a cataract removed. ALLERGIES: LISINOPRIL AND MORPHINE. CURRENT MEDICATIONS: Include prednisone, she is on 2.5 mg daily. She is on Mag-Ox 400 mg daily, losartan 100 mg daily. She is on Arava 10 mg daily, Cymbalta 90 mg daily, Plavix 75 mg daily, aspirin chewable 81 mg daily, Pravachol 40 mg at bedtime, nifedipine 90 mg daily, metoprolol 25 mg b.i.d., isosorbide 10 mg b.i.d., Lantus 26 units daily. She is on Zetia 10 mg daily. She is on calcium 500 mg b.i.d. She is on Catapres or clonidine p.r.n. She is on an intermittent resistant sliding scale of Humulin R on her blood sugars and Mesa 10/325 one tab q.4 hours p.r.n. and Benadryl 25 mg q.4 hours p.r.n. HABITS: No alcohol or tobacco use. HISTORY AND PHYSICAL [id number] JOB FOWLER FAMILY HISTORY: Noncontributory. SOCIAL HISTORY: The patient hopes to return back home with her spouse. REVIEW OF SYSTEMS: GENERAL: Does complain of weakness and fatigue. HEENT: Denies cold, cough, or congestion. CARDIOVASCULAR: Denies any chest pain. PHYSICAL EXAMINATION: VITAL SIGNS: Stable, afebrile. GENERAL: Elderly female, in no distress upon exam. HEENT: Normocephalic and atraumatic. Mucosa moist. NECK: Supple. No lymphadenopathy. LUNGS: Clear at this time. No wheezing or rales. HEART: Regular rhythm. She does have a holosystolic murmur. ABDOMEN: Soft, benign, nondistended. Positive bowel sounds times 4. EXTREMITIES: Does have changes in her foot consistent with Charcot joint from her diabetes. NEUROLOGIC: She has got diffuse weakness. LABORATORY DATA: Admit labs show a white count of 7.0, hemoglobin and hematocrit 11 and 34, and platelet count was noted to be 351. Her sodium is 141, potassium 3.8, BUN and creatinine of 26 and 1.6, and blood sugar was noted to be 95. ASSESSMENT: This is a 74-year-old female patient admitted to rehab with a working diagnosis of sequelae from a stroke and also Charcot's joints. The patient has potential to make improvement. We instituted the following multidisciplinary therapies including, not limited to physical, occupational, respiratory, speech, nutritional services, prosthetics and orthotics. Given her complex medical condition and risks for more complications, rehabilitation services cannot be provided at a low level of care such as detention facility. PLAN: 1. Admit to [facility] for inpatient therapy to include the following disciplines; A. Physical therapy to improve gait, all transfer skills and bed mobility to a modified independent level. B. Occupational therapy to improve activities of daily living. C. Case management to help with discharge planning and placement options. D. Nutrition to assist with nutritional needs. E. Rehabilitation nursing to assist in monitoring the patient's underlying medical conditions and to assist with any type of bowel or bladder management. 2. e patient's current medication and medical care will be continued. 3. Placed on standard fall precautions. 4. The patient's estimated length of stay is approximately 7-10 days. 5. We will discuss this patient during care team staff meeting this week. We will watch her pressures closely. I will adjust medications as needed and see again in the a.m. TRANSINT:[id number] Voice Confirmation ID: [id number] DOCUMENT ID: [id number] HISTORY AND PHYSICAL [id number] JOB FOWLER notes whether there has been none or any medical/functional change since admission: - No change since preadmission screen. MINE attests patient continues to be appropriate for IRF: - Continues to be appropriate. GOPI CAMACHO MD at [phone] CC: [id number] DICTATION DATE: 08/08/20 0850 MANUFACTURING RECRUITER: 08/08/20 1000 ADM IN [facility] [address] [place] [address]
[2020-08-11 07:32] VITALS: BP 196/83
--- NOTE | 2020-08-11 07:44 | NUR ---
SHE IS SETTING UP IN THE WHEELCHAIR, GOING TO THE BATHROOM. SHE FEET ARE SWOLLEN. PRN GIVEN FOR PAIN. THE CALL LIGHT IS WITHIN REACH.
[2020-08-11 09:30] VITALS: BP 134/56
--- NOTE | 2020-08-11 13:53 | NUR ---
Nutrition Follow-up: Diet: Diabetic PO intake: ~75% average x last 9 meals; she ate 100% of both breakfast and lunch trays today. Last BM: 08/10/20 Wt: 156# (08/08/20) Meds noted: lantus, prednisone, magox, SSI Labs noted (08/10/20): BUN 26(H), Cr 1.7(H), GFR 31(L) Skin: DTI/stage II PU to coccyx and left buttocks Recommend continue current diet. Will continue to honor food preferences within diet restrictions. Will add James BID for nutritionally aided wound healing. RD will re-assess on 08/15/20.
[2020-08-11 20:23] VITALS: BP 169/72
--- NOTE | 2020-08-11 23:00 | NUR ---
RECIEVED PATIENT LAYING IN BED AWAKE, CALL LIGHT IN REACH, NO ACUTE DISTRESS NOTED OR VOICED BY PATIENT.
--- NOTE | 2020-08-12 03:08 | NUR ---
PATIENT STATED THAT SHE HAD PAIN 7 OF 10 IN LEFT FOOT, GAVE NORCO-10 AT 02:38, TOLERATED WELL, REASSESSED AT 03:08 AND PATIENT WAS ASLEEP.
--- NOTE | 2020-08-12 03:59 | NUR ---
PATIENT REST QUIETLY IN BED EYES CLOSED.
[2020-08-12 05:57] LABS: BASOPHILS 1.2 % (0-2); EOSINOPHILS 3.8 % (0-7); HEMATOCRIT 32.6 % (36.0-48.0); HEMOGLOBIN 10.7 g/dL (12-16); LYMPHOCYTES 19.2 % (15-50); MCH 30.2 pg (26.0-34.0); MCHC 32.9 g/dL (31.0-37.0); MCV 91.7 fL (80.0-100.0); MEAN PLATELET VOLUME 6.3 fL (7.4-10.4); MONOCYTES 9.3 % (2-11); NEUTROPHILS 66.5 % (40-80); PLATELET COUNT 379 10x3/uL (130-400); RBC 3.56 10x6/uL (4.00-5.40); RDW 14.3 % (11.5-14.5); WBC 7.2 10x3/uL (4.8-10.8)
[2020-08-12 06:06] LABS: ANION GAP 11.5 mmol/L (8-16); CALCIUM 9.3 mg/dL (8.5-10.1); CARBON DIOXIDE 29.1 mmol/L (21.0-32.0); CREATININE - SERUM 1.9 mg/dL (0.6-1.3); POTASSIUM - SERUM 3.6 mmol/L (3.5-5.1)
[2020-08-12 07:57] VITALS: BP 221/100
--- NOTE | 2020-08-12 08:28 | NUR ---
HER BP IS UP AGAIN THIS MORNING. DR. YAÑEZ. SHE IS IN THE WHEELCHAIR GOING INTO THE BATHROOM. SHE SAYS SHE IS CONSTAPATED. WILL GET SOME MEDICATION FOR THAT. HER LEFT FOOT/ANKLE AREA HAS A SMALL DRY PATCH OF SKIN JUST BELOW THE WRINKLE IN HER ANKLE, THE SKIN IS INTACT. PRN GIVEN FOR PAIN. THE CALL LIGHT LIGHT IS WITHIN REACH AND THE BED ALARM IS ON.
[2020-08-12 10:11] VITALS: BP 132/52
[2020-08-12 18:50] VITALS: BP 165/54
[2020-08-12 20:24] VITALS: BP 168/69
--- NOTE | 2020-08-12 20:30 | NUR ---
PATIENT RECEIVED SITTING UP IN WHEELCHAIR AT BEDSIDE. PATIENT TOILETED. ASSESSMENT & VITAL SIGNS DONE. PAIN IMPROVED AFTER PAIN MEDICATION GIVEN. ALARM ON. CALL LIGHT & BEDSIDE TABLE WITHIN REACH. WILL CONTINUE TO MONITOR.
--- NOTE | 2020-08-13 02:00 | NUR ---
I have reviewed this patient and I concur with the Shift Assessment completed by the Licensed Practical Nurse today this shift.
--- NOTE | 2020-08-13 04:00 | NUR ---
PATIENT AWAKE STANDBY ASSIST IN & OUT OF WHEELCHAIR. VOID ONLY. RETURNED TO LOW BED. ALARM ON. CALL LIGHT WITHIN REACH. WILL CONTINUE TO MONITOR.
--- NOTE | 2020-08-13 06:40 | NUR ---
PATIENT GIVEN CATAPRES FOR B/P OVER 170 SYSTOLOIC. BP 214/86. PATIENT GIVEN PUDDING & ORANGE JUICE FOR FSBS 59. PATIENT AGREED TO EAT A SNACK AT NIGHT. WILL MONITOR.
--- NOTE | 2020-08-13 08:00 | NUR ---
PT RESTING IN BED WITH EYES OPEN CALL LIGHT IN REACH WILL MONITER
[2020-08-13 09:26] VITALS: BP 162/79
--- NOTE | 2020-08-13 11:00 | NUR ---
PT B/P TAKEN PER REQUEST WNL WILL CONTINUE TO MONITER
--- NOTE | 2020-08-13 17:49 | NUR ---
PT UP IN WHEELCHAIR IN ROOM EATING SUPPER CALL LIGHT IN REACH WILL YANIVER
[2020-08-13 19:00] VITALS: BP 173/69
--- NOTE | 2020-08-13 19:20 | NUR ---
PATIENT RECEIVED SITTING UP IN WHEELCHAIR. IN ROOM. ASSESSMENT & VITAL SIGNS DONE. NO C/O PAIN OR DISTRESS. CALL LIGHT WITHIN REACH. WILL CONTINUE TO MONITOR.
--- NOTE | 2020-08-13 20:00 | NUR ---
PATIENT RECEIVED SITTING UP IN WHEELCHAIR. ASSESSMENT & VITAL SIGNS DONE. PATIENT TOILETED. VOID ONLY. RETURNED TO LOW BED. ALARM ON. CALL LIGHT WITHIN REACH. WILL CONTINUE TO MONITOR.
--- NOTE | 2020-08-13 21:00 | NUR ---
PATIENT GIVEN VANILLA PUDDING FOR SNACK. WILL CONTINUE TO MONITOR.
--- NOTE | 2020-08-14 02:01 | NUR ---
I have reviewed this patient and I concur with the Shift Assessment completed by the Licensed Practical Nurse today this shift.
--- NOTE | 2020-08-14 03:40 | NUR ---
PATIENT EYES CLOSED. RESPIRATIONS 18 & EVEN. PAIN MEDICATION EFFECTIVE. BED LOW. ALARM ON. CALL LIGHT WITHIN REACH. WILL CONTINUE TO MONIOTR.
[2020-08-14 05:34] VITALS: BP 211/89
--- NOTE | 2020-08-14 06:30 | NUR ---
PATIENT FSBS 59. PATIENT ATE PUDDING & DRANK COFFEE. WAS NOT UPSET ABOUT 59 FSBS. WILL EAT PEANUT BUTTER CRACKERS TONIGHT. BED LOW. CALL LIGHT WITHIN REACH. WILL CONTINUE TO MONITOR.
[2020-08-14 07:54] VITALS: BP 211/89
--- NOTE | 2020-08-14 11:23 | NUR ---
PT RESTING IN BED WITH EYES OPEN CALL LIGHT IN REACH WILL MONITER
[2020-08-14 16:02] VITALS: BP 156/63
--- NOTE | 2020-08-14 18:03 | NUR ---
PT UP IN WHEELCHAIR AT BEDSIDE CALL LIGHT IN REACH WILL MONITER
--- NOTE | 2020-08-14 19:17 | NUR ---
PATIENT RECEIVED LAYING IN BED. ASSESSMENT & VITAL SIGNS DONE. NO C/O PAIN OR DISTRESS. BED LOW. ALARM ON. CALL LIGHT & BEDSIDSE TABLE WITHIN REACH. WILL CONTINUE TO MONITOR.
[2020-08-14 19:46] VITALS: BP 142/55
--- NOTE | 2020-08-14 23:00 | NUR ---
PATIENT USED CALL LIGHT FOR ASSIST. PATIENT STANDBY ASSIST IN & OUT OF BED & WHEELCHAIR. ON & OFF COMMODE. VOID & BM. WASHED HANDS & RETURNED TO LOW BED. ALARM ON. CALL LIGHT & BEDSIDE TABLE WITHIN REACH. WILL CONTINUE TO MONITOR.
--- NOTE | 2020-08-14 23:39 | NUR ---
I have reviewed this patient and I concur with the Shift Assessment completed by the Licensed Practical Nurse today this shift.
--- NOTE | 2020-08-15 04:36 | NUR ---
PATIENT USED CALL LIGHT FOR ASSIST. PATIENT STANDBY ASSIST INTO & OUT OF BED & WHEELCHAIR. ON & OFF COMMODE. VOID ONLY. RETURNED TO LOW BED. CALL LIGHT WITHIN REACH. WILL CONTINUE TO MONITOR.
[2020-08-15 06:21] VITALS: BP 227/81
[2020-08-15 07:57] LABS: BASOPHILS 1.3 % (0-2); EOSINOPHILS 5.4 % (0-7); HEMATOCRIT 34.3 % (36.0-48.0); HEMOGLOBIN 11.3 g/dL (12-16); LYMPHOCYTES 22.7 % (15-50); MCHC 32.8 g/dL (31.0-37.0); MCV 91.3 fL (80.0-100.0); MEAN PLATELET VOLUME 6.4 fL (7.4-10.4); MONOCYTES 9.1 % (2-11); NEUTROPHILS 61.5 % (40-80); PLATELET COUNT 378 10x3/uL (130-400); RBC 3.76 10x6/uL (4.00-5.40); RDW 14.2 % (11.5-14.5); WBC 6.9 10x3/uL (4.8-10.8)
--- NOTE | 2020-08-15 08:00 | NUR ---
SHE IS SETTING UP IN THE WHEELCHAIR, BILATERAL LEG/FEET EDEMA. MEDICATIONS GIVEN WITHOUT ANY PROBLEMS. THE CALL LIGHT IS WTIHIN REACH AND THE BED ALARM IS ON.
[2020-08-15 08:04] LABS: ANION GAP 10.3 mmol/L (8-16); CALCIUM 8.9 mg/dL (8.5-10.1); CARBON DIOXIDE 31.5 mmol/L (21.0-32.0); CREATININE - SERUM 2.2 mg/dL (0.6-1.3); POTASSIUM - SERUM 3.8 mmol/L (3.5-5.1)
[2020-08-15 08:48] VITALS: BP 136/58
--- NOTE | 2020-08-15 12:45 | NUR ---
Nutrition Re-Assessment Diet: Diabetic + James BID PO intake: ~92% average x last 9 meals. Spoke with patient at bedside. She states that her appetite is "just fine." She ate 100% of breakfast this AM. States that she is not drinking the James because she does not like the taste of it. Patient states that she does not have an wounds/sores on bottom, only previously had a hemorrhoid. Last BM: 08/15/20 Wt: 156# (08/08/20) Meds noted: lantus, prednisone, magox, SSI Labs noted: BUN 40(H), Cr 2.2(H), GFR 23(L), Glu 125(H) Skin: stage II PU to left bottocks (per nursing skin assessment) Estimated nutrition needs: 1425-1700cal (25-30kcal/kg IBW), 42-56gms protein (0.6-0.8gms/kg), 1750-2100mL fluid (or per MD) Nutrition diagnosis: Altered nutrition related lab values r/t kidney dysfucntion/CKD stage IV AEB BUN 40, Cr 2.2, GFR 23. Nutrition goals: -PO intake =/>75% meals -Meet fluid needs -Stable weight DHS -Improved skin integrity Recommendations/Interventions: -Recommend continue current diet. Will continue to honor food preferences within diet restrictions. -Will discontinue James as patient does not like it and is not drinking it. -RD will follow-up 08/17/20
[2020-08-15 14:39] VITALS: BP 155/51
[2020-08-15 18:36] VITALS: BP 153/76
--- NOTE | 2020-08-15 19:11 | NUR ---
AWAKE AND ALERT. RESTING IN BED WITH RESPIRATIONS UNLABORED. NOTED GENERALIZED SWELLING. NO ACUTE DISTRESS NOTED. CALL LIGHT IN REACH.
[2020-08-15 20:00] VITALS: BP 142/56
--- NOTE | 2020-08-16 00:17 | NUR ---
RESTING IN BED WITH RESPIRATIONS UNLABORED AND NO DISTRESS NOTED.
--- NOTE | 2020-08-16 02:20 | NUR ---
SLEEPING WITH RESPIRATIONS UNLABORED. NO DISTRESS NOTED.
--- NOTE | 2020-08-16 05:04 | NUR ---
QUIET HOURS. NO ACUTE CHANGES IN CONDITION THIS SHIFT. RESTING IN BED WITH NO DISTRESS NOTED.
[2020-08-16 06:19] VITALS: BP 190/63
[2020-08-16 07:14] VITALS: BP 185/60
--- NOTE | 2020-08-16 07:23 | NUR ---
SHE IS SETTING UP IN THE WHEELCHAIR THIS MORNING, SHE HAS BEEN IN THE BATHROOM. SHE IS STILL SWOLLEN, ARMS, BILATERA LEG/FEET. BP MEDS GIVEN WILL RECHECK BP LATER. SHE REDNESS AREA THAT WAS ON HER BOTTOM HAS RESOLVED. THE CALL LIGHT IS WITHIN REACH AND THE BED ALARM IS ON.
[2020-08-16 09:51] VITALS: BP 112/61
[2020-08-16 15:49] VITALS: BP 164/63
--- NOTE | 2020-08-16 20:15 | NUR ---
AWAKE AND ALERT. RESTING IN BED WITH RESPIRATIONS UNLABORED. MEDICATED FOR PAIN AND ITCHING. NO DISTRESS NOTED. CALL LIGHT IN REACH.
[2020-08-16 20:16] VITALS: BP 171/66
--- NOTE | 2020-08-17 05:22 | NUR ---
QUIET HOURS. NO ACUTE CHANGES IN CONDITION THIS SHIFT. RESTING IN BED WITH NO DISTRESS NOTED.
--- NOTE | 2020-08-17 06:39 | NUR ---
BLOOD PRESSURE 213/84. ALERT AND ORIENED. MEDICATED FOR PAIN IN FOOT. AM MEDS FOR BP GIVEN EXCEPT PROCARDIA XL WHICH WAS NOT IN PIXES. PHARMACY NOTIFIED TO BRING PROCARDIA XL. CLONIDINE 0.1MG GIVEN ORDERED FOR PRN ELEVATED BLOOD PRESSURE.
[2020-08-17 07:16] LABS: EOSINOPHILS 5.1 % (0-7); HEMATOCRIT 32.6 % (36.0-48.0); HEMOGLOBIN 10.7 g/dL (12-16); LYMPHOCYTES 22.5 % (15-50); MCH 29.7 pg (26.0-34.0); MCV 90.1 fL (80.0-100.0); MEAN PLATELET VOLUME 6.6 fL (7.4-10.4); MONOCYTES 13.7 % (2-11); NEUTROPHILS 57.7 % (40-80); PLATELET COUNT 331 10x3/uL (130-400); RBC 3.62 10x6/uL (4.00-5.40); RDW 14.3 % (11.5-14.5); WBC 5.5 10x3/uL (4.8-10.8)
[2020-08-17 07:45] LABS: ANION GAP 14.3 mmol/L (8-16); CALCIUM 8.8 mg/dL (8.5-10.1); CARBON DIOXIDE 30.4 mmol/L (21.0-32.0); CREATININE - SERUM 2.2 mg/dL (0.6-1.3); POTASSIUM - SERUM 3.7 mmol/L (3.5-5.1)
[2020-08-17 07:57] VITALS: BP 127/40
--- NOTE | 2020-08-17 08:00 | NUR ---
PATIENT IS ALERT/ORIENT. CALL LIGHT WITHIN REACH. VOICES NO NEEDS AT THIS TIME. WILL CONTINUE WITH PLAN OF CARE
--- NOTE | 2020-08-17 10:30 | NUR ---
NURSE ASST IN PATIENTS ROOM. HELPING PATIENT WITH A SHOWER.
--- NOTE | 2020-08-17 12:00 | NUR ---
I have reviewed this patient and I concur with the Shift Assessment completed by the Licensed Practical Nurse today this shift.
--- NOTE | 2020-08-17 13:37 | NUR ---
CARE TEAM MEETING: PATIENT IS DOING WELL IN THERAPY AND WILL DC HOME ON 08/19/20. WILL CONTINUE TO FOLLOW WITH PATIENT AND WILL ASSIST WITH HER DC NEEDS.
--- NOTE | 2020-08-17 14:35 | NUR ---
PRN NORCO GIVEN FOR LEFT FOOT PAIN PER PATIENT REQUEST
--- NOTE | 2020-08-17 19:00 | NUR ---
ROUNDS MADE, PT SITTING UP IN WC, INFORMED PT THAT I WILL BE BACK SHORTLY, PT VERBALIZES UNDERSTANDING, REQUESTS PAIN PILL WHEN I ADM NIGHTTIME MEDS
[2020-08-17 19:55] VITALS: BP 124/46
--- NOTE | 2020-08-17 20:07 | NUR ---
ASSESSMENT PER FLOW SHEET, OBTAINED FSBS, PT REPORTS BM YESTERDAY, PASSING FLATUS, AND VOIDING WITH NO DIFFICULTY, ADM 2100 MEDS PER MD ORDERS, SEE EMAR, PT DENIES FURTHER NEEDS
--- NOTE | 2020-08-17 21:33 | NUR ---
PT RESTING WITH EYES CLOSED, RESP QUIET, NO DISTRESS NOTED, LEFT UNDISTURBED AT THIS TIME
--- NOTE | 2020-08-17 22:42 | NUR ---
PT RESTING WITH EYES CLOSED, RESP QUIET, NO DISTRESS NOTED, LEFT UNDISTURBED AT THIS TIME
[2020-08-17 23:58] VITALS: BP 153/60
--- NOTE | 2020-08-17 23:58 | NUR ---
PT AWAKE, OBTAINED VS, PT REQUESTED TO GO AHEAD AND TAKE BP MEDICINE AT THIS TIME, ADM BP AND PAIN MED PER MD ORDERS, SEE EMAR, PT DENIES FURTHER NEEDS
--- NOTE | 2020-08-18 02:15 | NUR ---
PT RESTING WITH EYES CLOSED, RESP QUIET, NO DISTRESS NOTED, LEFT UNDISTURBED AT THIS TIME
[2020-08-18 03:26] VITALS: BP 165/68
--- NOTE | 2020-08-18 03:26 | NUR ---
PT CONCENTRATOR OPERATOR LIGHT, PT REQUEST BLOOD SUGAR CHECK, BS 168, OBTAINED BP, BP 165/68, ADM CLONIDINE PER MD ORDERS, SEE EMAR, PT REQUESTS PAIN MED WHEN DUE, INFORMED PT THAT I WILL BE IN AROUND 4AM TO ADM AND RECHECK BP, PT DENIES FURTHER NEEDS
[2020-08-18 04:20] VITALS: BP 144/54
[2020-08-18 06:48] VITALS: BP 171/68
--- NOTE | 2020-08-18 06:48 | NUR ---
PT RESTING WITH EYES CLOSED, AROUSES TO SOFT VERBAL STIMULATION, OBTAINED FSBS, DAILY WEIGHT, BP OBTAINED, ADM 0630 PER MD ORDERS, SEE EMAR, PT DENIES FURTHER NEEDS
--- NOTE | 2020-08-18 07:26 | NUR ---
PT RESTING IN BED WITH EYES OPEN CALL LIGHT IN REACH WILL MONITER
--- NOTE | 2020-08-18 18:37 | NUR ---
PT RESTING IN BED WITH EYES OPEN CALL LIGHT IN REACH WILL MONITER
[2020-08-18 20:02] VITALS: BP 147/44
--- NOTE | 2020-08-19 02:05 | NUR ---
PT RESTING WITH EYES CLOSED. RESPIRATIONS EVEN AND UNLABORED. HER BED IS LOW AND CALL LIGHT IS WITHIN REACH.
[2020-08-19 05:13] VITALS: BP 207/78
[2020-08-19 05:14] VITALS: BP 204/80
[2020-08-19 07:02] LABS: BASOPHILS 1.3 % (0-2); HEMATOCRIT 29.8 % (36.0-48.0); HEMOGLOBIN 9.9 g/dL (12-16); LYMPHOCYTES 24.2 % (15-50); MCH 29.9 pg (26.0-34.0); MCHC 33.2 g/dL (31.0-37.0); MCV 90.2 fL (80.0-100.0); MEAN PLATELET VOLUME 6.9 fL (7.4-10.4); MONOCYTES 10.6 % (2-11); NEUTROPHILS 59.9 % (40-80); PLATELET COUNT 332 10x3/uL (130-400); RBC 3.31 10x6/uL (4.00-5.40); RDW 14.4 % (11.5-14.5)
[2020-08-19 07:24] LABS: ANION GAP 13.8 mmol/L (8-16); CALCIUM 8.3 mg/dL (8.5-10.1); CREATININE - SERUM 2.6 mg/dL (0.6-1.3); POTASSIUM - SERUM 3.8 mmol/L (3.5-5.1)
--- NOTE | 2020-08-19 08:00 | NUR ---
PT RESTING IN BED WITH EYES OPEN CALL LIGHT IN REACH NO PROBLEMS WILL MONITER
[2020-08-19] MEDS ORDERED: HYDROCODON-ACE1 EA10 PO (08:47)
--- NOTE | 2020-08-19 09:08 | NUR ---
PATIENT DISCHARGING HOME TODAY WITH FAMILY. PATIENT DECLINES HOME HEALTH AT THIS TIME AND ANY NEW DME NEEDS. MIGUE SIGNED, IMM SERVED AND EXPLAINED, ONE GIVEN TO PATIENT AND ONE FILED IN CHART. DR. CARCAMO 08/29/20 @ 11:30, DR. SWEENEY 09/09/20 @ 9:20, DR. VELASCO/RADHA 09/01/20 @ 10:00. DISCHARGE INSTRUCTIONS FAXED TO PCP AND REVIEWED WITH PATIENT.
[2020-08-19] MEDS ORDERED: ISOSORBIDE DINI20 MG PO (12:13)
[2020-08-19] MEDS ORDERED: METOPROLOL TART50 MG PO (12:14)
[2020-08-19] MEDS ORDERED: HYDRALAZINE HCL50 MG PO (12:15)
[2020-08-19] MEDS ORDERED: COZAAR100 MG PO (12:17)
[2020-08-19] MEDS ORDERED: LANTUS SOL100 UNIT/2 SQ (12:19)
[2020-08-19] MEDS ORDERED: CHLORTHALIDONE25 MG PO (12:21)
--- NOTE | 2020-08-19 12:30 | NUR ---
PT DISCHARGED TO HOME VIA WHEELCHAIR WITH . DISCHARGE SUMMARY AND MEDS REVIEWED WITH PT. NO QUESTIONS OR CONCERNS. MEDS CALLED TO [facility]
== END 2020-08-19 16:13 | disposition home or self-care (01) | DRG 56 ==
LOC: D.REHAB 13:54
PROVIDERS: Internal Medicine; ADMIT Emergency Medicine; ATTEND Emergency Medicine
DX: I69.30 Unspecified sequelae of cerebral infarction (principal); I63.9 Cerebral infarction, unspecified; N18.4 Chronic kidney disease, stage 4 (severe); M19.90 Unspecified osteoarthritis, unspecified site; J45.909 Unspecified asthma, uncomplicated; I25.10 Atherosclerotic heart disease of native coronary artery without angina pectoris; F32.9 Major depressive disorder, single episode, unspecified; E11.9 Type 2 diabetes mellitus without complications; R13.10 Dysphagia, unspecified; I73.9 Peripheral vascular disease, unspecified; I12.9 Hypertensive chronic kidney disease with stage 1 through stage 4 chronic kidney disease, or unspecified chronic kidney disease; E11.22 Type 2 diabetes mellitus with diabetic chronic kidney disease; D63.1 Anemia in chronic kidney disease